=== PATIENT | female | born 1975 | race Caucasian/White ===

== ENCOUNTER 2016-08-27 07:41 | Inpatient (IN) | payer OTHER ==
[2016-08-25 14:57] VITALS: BMI 26.2
[2016-08-27] MEDS ORDERED: KETOROLAC TROMETHAMINE 30 MG/1 ML VIAL ONE (10:16)
[2016-08-27] MEDS ORDERED: MIDAZOLAM HCL 2 MG/2 ML SINGLE DOSE VIAL ONE (10:16)
[2016-08-27] MEDS ORDERED: ceFAZolin SODIUM 1 GM VIAL ONE ×2 (10:16→17:44)
[2016-08-27] MEDS ORDERED: ROCURONIUM BROMIDE 50 MG/5 ML VIAL ONE ×2 (10:16→11:47)
[2016-08-27] MEDS ORDERED: DEXAMETHASONE SOD PHOSPHATE 4 MG/1 ML VIAL ONE ×2 (10:16→16:04)
[2016-08-27] MEDS ORDERED: SODIUM CHLORIDE 0.9% P/F 10 ML VIAL IJ ONE (10:16)
[2016-08-27] MEDS ORDERED: ceFAZolin SODIUM 1 GM VIAL IVPB ONE ×2 (10:31→18:20)
[2016-08-27] MEDS ORDERED: METHYLENE BLUE 1% 10 MG/1 ML VIAL ONE (11:49)
[2016-08-27] MEDS ORDERED: METRONIDAZOLE 500 MG PREMIXED 100 ML IVPB ONE (12:59)
[2016-08-27] MEDS ORDERED: METRONIDAZOLE 500 MG PREMIXED 500 MG/100 ML MG IVPB ONE (13:02)
--- NOTE | 2016-08-27 14:47 | OP ---
Operative Note - Note: Operative Date: 08/27/16 Pre-Operative Diagnosis: Possible small bowel enterotomy Operation: Robotic lysis of adhesions, exploratory laparotomy, small bowel resection with primary anastomosis Findings: Small bowel enterotomy Post-Operative Diagnosis: Other (Small bowel enterotomy) Surgeon: Chinedu Ventura Patient Resource Coordinator: Celestina Walters Anesthesia: General Specimens Removed: Small bowel with anastomotic content Estimated Blood Loss (mls): 30 Operative Report Dictated: Yes
[2016-08-27] MEDS ORDERED: HYDROmorphone HCL CARPU-JECT 2 MG/1 ML DISP.SYRIN ONE (16:42)
[2016-08-27] MEDS: HYDROmorphone HCL CARPU-JECT 1 MG/1 ML DISP.SYRIN IVPUSH PRN ×4 (16:42→17:12)
[2016-08-27] MEDS ORDERED: LACTATED RINGERS SOLUTION 1,000 ML IV SCH (16:45)
[2016-08-27] MEDS ORDERED: ONDANSETRON 4 MG/2 ML VIAL IVPUSH PRN (16:45)
[2016-08-27] MEDS ORDERED: IBUPROFEN 800 MG/8 ML IJ IVPB PRN (16:48)
--- NOTE | 2016-08-27 16:48 | HP ---
History & Physical Update - History History: No Change - Physical Physical: No Change - Assessment Assessment: No Change - Plan Plan: No Change
[2016-08-27] MEDS: CEFAZOLIN 2 GM/D5W 50 ML IVPB SCH (20:03)
--- NOTE | 2016-08-27 21:34 | OP ---
Operative Note - Note: Operative Date: 08/27/16 Pre-Operative Diagnosis: Chronic Pelvic Pain. Leiomyomatous Uterus Operation: Robotic Laparoscopic Total hysterectomy. Bilateral salpingectomy. Enterolysis. Enterotomy. Bowel reanastomsis by Dr Ventura Findings: 8cm anterior myoma removed prior to doing hysterectomy enterotomy done after bowel found attached to anterior abdominal wall General surgeon called for intraoperative consult bowel resection & reanastomosis done bowel seal confirmed Post-Operative Diagnosis: Same as Pre-op Surgeon: Akilah Dowd Commercial Assistant: Celestina Walters Anesthesiologist/SASH STICKER: Reynaldo Claros Jr. Anesthesia: General Estimated Blood Loss (mls): 100 Operative Report Dictated: Yes
[2016-08-28] MEDS: CEFAZOLIN 2 GM/D5W 50 ML IVPB SCH (01:12)
[2016-08-28] MEDS: HYDROmorphone HCL CARPU-JECT 1 MG/1 ML DISP.SYRIN IVPB PRN ×5 (02:29→20:16)
--- NOTE | 2016-08-28 08:03 | PN ---
Progress Note, Physician Chief Complaint: Pt. pain controlled, no GA complaints. - Current Medication List Current Medications: Active Medications Enoxaparin Sodium (Lovenox -) 40 mg SQ DAILY LIZETTE Hydromorphone HCl (Dilaudid Injection -) 1 mg IVPB Q4H PRN PRN Reason: PAIN Last Admin: 08/28/16 02:29 Dose: 1 mg Hydromorphone HCl (Dilaudid -) 4 mg PO Q4H PRN PRN Reason: PAIN Dextrose/Lactated Ringer's (D5-Lr -) 1,000 mls @ 125 mls/hr IV ASDIR LIZETTE Ibuprofen (Caldolor Injection -) 800 mg IVPB Q6H PRN PRN Reason: FEVER Last Admin: 08/28/16 01:13 Dose: 800 mg - Objective Vital Signs: Vital Signs Temperature 98.0 F 08/28/16 05:46 Pulse Rate 74 08/28/16 05:46 Respiratory Rate 16 08/28/16 05:46 Blood Pressure 96/66 08/28/16 05:46 O2 Sat by Pulse Oximetry (%) 98 08/28/16 05:47 Constitutional: Yes: Well Nourished, No Distress, Calm Musculoskeletal: Yes: WNL Neurological: Yes: WNL, Alert, Oriented ...Motor Strength: WNL Assessment/Plan POD#1 s/p Robotic hysterectomy with bilateral salpingectomy, lysis of adhesions , and reanastamosis of small bowel. Under GA. Doing well. D/C from anesthesia care.
[2016-08-28 08:32] LABS: MCH 29.4 pg (25.7-33.7); MCHC 33.5 g/dl (32.0-36.0); MEAN CELL VOLUME 87.8 fl (80-96); MEAN PLT VOLUME 8.8 fl (7.5-11.1); PLATELET COUNT 213 K/MM3 (134-434); RDW 13.3 % (11.6-15.6); WHITE BLOOD COUNT 10.8 K/mm3 (4.0-10.0)
--- NOTE | 2016-08-28 09:05 | PN ---
[id number] Total hysterectomy. Bilateral salpingectomy. Enterolysis. Enterotomy. Bowel reanastomsis by Dr Ventura No acute events per RN notes. Resting in position of comfort. C/o incisional tenderness. Denies flatus, n/v/f/c, CP or SOB. AVSS. Afebrile. H/H 10.4/30.9 PE General: alert. nad Pulm: cta b/l anteriorly Cor: rrr Abd: Soft. All surgical ports intact. No hematoma. Bowel sounds absent. <Seth Garza - Last Filed: 08/28/16 09:06> - Note Progress Note: Agree POD 1 Robotic lysis of adhesions, exploratory laparotomy, small bowel resection with anastomosis Pain controlled No flatus No nausea/vomiting AVSS Abd soft, incisional tenderness CBC, BMP 08/28/16 06:30 08/28/16 08:20 OOB Incentive spirometer Sips of clears Would not advance diet until has flatus <Chinedu Ventura - Last Filed: 08/28/16 13:26> Problem List - Problems (1) S/P hysterectomy Assessment/Plan: POD #1 s/p Robotic Laparoscopic Total hysterectomy. Bilateral salpingectomy. Enterolysis. Enterotomy. Bowel reanastomsis by Dr Ventura Cont NPO & IVF Awaiting bowel function to resume before starting diet. Pain management PRN Aggressive mobilization Incentive spirometer GI ppx Cont care per primary team Code(s): Z90.710 - ACQUIRED ABSENCE OF BOTH CERVIX AND UTERUS <Seth Garza P - Last Filed: 08/28/16 09:06>
[2016-08-28 09:23] LABS: CALCIUM 7.7 mg/dL (8.5-10.1); CREATININE 0.5 mg/dL (0.55-1.02)
--- NOTE | 2016-08-28 09:53 | PN ---
Progress Note, Physician Chief Complaint: Pt seen/evaluated this a.m. With some pain at incision sites, otherwise feels well. No CP/SOB/F/C/BROWN. No flatus. Was given some clear liquid/water last night to sip on. NO vomiting overnight. Having some nausea. No VB. - Current Medication List Current Medications: Active Medications Enoxaparin Sodium (Lovenox -) 40 mg SQ DAILY LIZETTE Hydromorphone HCl (Dilaudid Injection -) 1 mg IVPB Q4H PRN PRN Reason: PAIN Last Admin: 08/28/16 08:03 Dose: 1 mg Hydromorphone HCl (Dilaudid -) 4 mg PO Q4H PRN PRN Reason: PAIN Dextrose/Lactated Ringer's (D5-Lr -) 1,000 mls @ 125 mls/hr IV ASDIR LIZETTE Ibuprofen (Caldolor Injection -) 800 mg IVPB Q6H PRN PRN Reason: FEVER Last Admin: 08/28/16 01:13 Dose: 800 mg - Objective Vital Signs: Vital Signs Temperature 98.9 F 08/28/16 09:19 Pulse Rate 83 08/28/16 09:19 Respiratory Rate 20 08/28/16 09:19 Blood Pressure 115/64 08/28/16 09:19 O2 Sat by Pulse Oximetry (%) 97 08/28/16 09:00 Constitutional: Yes: Well Nourished, No Distress, Calm Eyes: Yes: Conjunctiva Clear, EOM Intact HENT: Yes: Atraumatic, Normocephalic Neck: Yes: Supple, Thyromegaly Cardiovascular: Yes: Regular Rate and Rhythm Respiratory: Yes: Regular, CTA Bilaterally Gastrointestinal: Yes: Soft, Hypoactive Bowel Sounds (absent), Tenderness ( appropriate post surgical tenderness) Extremities: Yes: WNL, Other (b/l SCDs in place) Edema: No Wound/Incision: Yes: Clean/Dry, Dressing Dry and Intact Neurological: Yes: Alert, Oriented Psychiatric: Yes: Alert, Oriented Labs: CBC, BMP 08/28/16 06:30 08/28/16 08:20 Problem List - Problems (1) S/P hysterectomy Code(s): Z90.710 - ACQUIRED ABSENCE OF BOTH CERVIX AND UTERUS (2) Iatrogenic enterotomy Code(s): [id number] - Assessment/Plan 41 y/o POD #1 s/p Robotic Laparoscopic Total hysterectomy, Bilateral salpingectomy, Enterolysis, Enterotomy and Bowel reanastomsis by Dr Ventura - AFVSS - Mild leukocytosis, Hgb stable at 10.4 - enterolysis and repair of enterotomy by gen. surgery - NPO for now. On antibiotics X 24 hours. For bowel regimen/diet management per gen. surgery - appreciate input - Hgb stable post op - remove castro catheter later today, until then, strict I/Os . - ambulation later today, lovenox for VTE PPx
[2016-08-28] MEDS: ENOXAPARIN NA (PORCINE) 40 MG/0.4 ML DISP.SYRIN SQ SCH (09:59)
[2016-08-28] MEDS: DEXTROSE 5%-LACTATED RINGERS 1,000 ML IV SCH (13:37)
--- NOTE | 2016-08-28 17:49 | OP ---
DATE OF OPERATION: 08/27/2016 PREOPERATIVE DIAGNOSIS: Chronic pelvic pain and leiomyomatous uterus. OPERATION: Robotic total laparoscopic hysterectomy and bilateral salpingectomy. Also, enterolysis and enterotomy, and re-anastomosis done by Dr. Ventura. SURGEON: Felipa Salazar M.D. TICK INSPECTOR: Celestina Walters M.D. Intraoperative consult called by Dr. Ventura. FINDINGS: An 8-cm anterior myoma in the uterus, uterus approximately 11 cm in size. Also, findings were bowel attached to the anterior abdominal wall, possibly within the wall of the abdomen. Ovaries normal. Left ovary noted to have a cyst on it. Fallopian tubes were normal. ANESTHESIA: General. ANESTHESIOLOGIST: Reynaldo Claros CRNA, and Jaleel Santizo M.D. PROCEDURE: Patient was taken to the operating room, placed in dorsal lithotomy position, prepped and draped in usual sterile fashion. A timeout was performed in accordance with hospital regulation. De Souza catheter was placed into the bladder. Anterior lip of the cervix was grasped with a single tooth tenaculum after speculum had been placed. Cervix was then dilated to accommodate the V-Care device. V- Care uterine manipulator was entered into endometrial cavity and around the cervix. Attention was then drawn to the umbilicus where an 8-mm umbilical incision was then made. Veress needle was inserted into the cavity. Approximately 3 to 4 liters of CO2 was insufflated in the cavity. Another 8-mm trocar was placed on the lower left, and in the upper left a 5-mm cannula was placed under direct visualization. Two incisions were made on the right, 8 mm in size, and 8-mm trocars were inserted approximately 8 to 10 cm apart from each other. Laparoscopic camera revealed a severely adherent bowel opacity, anterior abdominal wall. The Endoshears and harmonic was attached. Was unable to see to perform hysterectomy due to the bowel attached to the anterior abdominal wall possibly after patient's abdominoplasty. The harmonic was used to remove the adhesions, omental adhesions and bowel adhesions, to the anterior abdominal wall. Procedure was to enter the abdominal wall and remove the bowel out of the anterior abdominal wall. Robot was side docked and trocars attached. An enterotomy was noted intraoperatively, and general surgery was then called. Dr. Ventura was called and found the enterotomy. Further enterolysis was done with robot, and decision was then made to repair the enterotomy with anastomosis through a small incision in the upper abdomen done by Dr. Ventura. Procedure was done by Dr. Ventura, assisted by Dr. Walters. After bowel had been repaired and seal noted, bowel was replaced back into the abdomen, and fascia was then closed. The attention was then drawn back to the robot after trocars had been reinserted onto the Da Brant robot which was side docked to the patient's side. The uterus was moved to the right side with tenaculum where round ligament was identified and clamped and cut. Uterine ovarian ligament was identified and clamped and cut using a vessel sealer. Vessel sealer tenaculum and Endoshears had been placed in the patient's abdomen. Vesicouterine reflection was then entered and bladder was bluntly dissected out of the operative field. V-Care uterine manipulator was identified. Uterine artery was identified, clamped and cut, and cardinal ligaments was identified and clamped and cut. Endoshears were then used to enter the vagina anteriorly with the uterine manipulator. Attention was then drawn to the right side. The same procedure was repeated on the right. The uteroovarian ligament was identified and clamped and cut. Round ligament was identified and clamped and cut, and uterine arteries were clamped and cut using vessel sealer, and cardinal ligament was identified and clamped and cut. Endoshears were then used to make the circumferential incision on the vagina to remove the cervix away from the vagina. The ureters were identified and found to have peristalsis bilaterally. Methylene blue had been given to the patient, and blue dye was seen coming out of De Souza and none intraoperatively. Fallopian tubes were grasped and cut using Ligasure and removed. The 8-cm myoma that had been removed in the anterior aspect of the uterus was removed also from the vagina. Uterus and cervix were removed from the vagina with the fallopian tubes. A 2-0 V-Loc suture was passed intraabdominally, and the robot was used to close the vagina continuous fashion, and oversewn in the midline. Ureters were found to have peristalsis Hemostasis was achieved, estimated blood loss was 100 mL. All instruments were then removed. Da Brant robot was removed from the patient's bedside. Incisions were then closed using 4-0 Biosyn in subcuticular fashion on all incisions. Steri-Strips were placed on the incision. Wound was washed and dressed. Patient tolerated procedure well. Estimated blood loss was again 100 mL. FELIPA SALAZAR M.D. [id number] MTDD
--- NOTE | 2016-08-28 18:24 | OP ---
DATE OF OPERATION: 08/27/2016 REASON FOR INTRAOPERATIVE CONSULTATION: Possible enterotomy during robotic hysterectomy. PREOPERATIVE DIAGNOSIS: Possible small bowel enterotomy. POSTOPERATIVE DIAGNOSIS: Small bowel enterotomy. PROCEDURES: Robotic lysis of adhesions, exploratory laparotomy and small bowel resection with primary anastomosis. SPECIMENS: Small bowel with anastomotic contents. ESTIMATED BLOOD LOSS: 30 mL. ANESTHESIA: GET. PROCEDURE IN DETAIL: This is a 41-year-old female who was undergoing a hysterectomy by Dr. Dowd and Dr. Walters when a question of a possible small bowel enterotomy was entertained. Intraoperative consult was obtained to further evaluate. I was called into the operating room to inspect for the possible small bowel enterotomy. At the robotic console, it was immediately noted that a loop of small bowel was densely adherent to the abdominal wall. This was the question of where the possible small bowel enterotomy was noted by Dr. Dowd upon trying to free the small bowel from the densely adhered abdominal wall. Robotic lysis of adhesions was performed carefully dissecting the loop of small bowel from the abdominal wall. Once fully done, the small bowel was inspected. A small bowel enterotomy was noted with approximately a 1.5-cm to 2-cm enterotomy defect. The small bowel was brought up to the abdominal wall and it was decided at that point to make a small transverse incision for an exploratory laparotomy to resect the bowel with the enterotomy. At the OR table, a transverse incision was made near the umbilicus and skin and subcutaneous dissection down to the level of the fascia. The fascia was divided. The small bowel was grasped and exteriorized. Again, the enterotomy was noted. Distal and proximal to the small bowel windows were created in the mesentery and the small bowel was transected using MARGIE staplers with blue load. A LigaSure device was used to ligate the blood supply to the specimen. Specimen was sent off the field. 3-0 silk sutures were used to reapproximate the two ends of the small bowel. Enterotomies were created in both ends and the anastomosis was created using an Endo MARGIE stapler with blue load. The common enterotomy was closed using a TA stapler. The staple line was inspected and noted to be fully intact. Hemostasis was achieved using 3-0 silk sutures. Further 3-0 silk were used to further imbricate the staple line, again the staple line was noted to be fully intact. The mesenteric defect was closed using a 2-0 Ethibond suture. The small bowel was again inspected and again the anastomosis noted to be intact and fully patent. This was then placed back within the abdominal cavity. While the fascia was being held closed by Dr. Walters further inspection via the robot was performed of the anastomosis. It was noted on reimplantation of the small bowel into the abdomen that the suture on the mesenteric defect had open, therefore further suture of 0 Tycron was placed to close the mesenteric defect. The anastomosis again was inspected and noted to be fully intact. At this point, Dr. Walters closed the fascia at the site and the rest of the hysterectomy was performed by Dr. Dowd and Dr. Walters. Please refer to their operative note for further details. KARYN IBARRA M.D. [id number] MTDD
[2016-08-29] MEDS: HYDROmorphone HCL CARPU-JECT 1 MG/1 ML DISP.SYRIN IVPB PRN ×2 (03:10→08:48)
--- NOTE | 2016-08-29 08:54 | PN ---
Progress Note, Physician Chief Complaint: she offers no complaints not passing any gas - Current Medication List Current Medications: Active Medications Enoxaparin Sodium (Lovenox -) 40 mg SQ DAILY [facility] Last Admin: 08/28/16 09:59 Dose: 40 mg Hydromorphone HCl (Dilaudid Injection -) 1 mg IVPB Q4H PRN PRN Reason: PAIN Last Admin: 08/29/16 03:10 Dose: 1 mg Hydromorphone HCl (Dilaudid -) 4 mg PO Q4H PRN PRN Reason: PAIN Dextrose/Lactated Ringer's (D5-Lr -) 1,000 mls @ 125 mls/hr IV ASDIR [facility] Last Admin: 08/28/16 13:37 Dose: 125 mls/hr Ibuprofen (Caldolor Injection -) 800 mg IVPB Q6H PRN PRN Reason: FEVER Last Admin: 08/28/16 01:13 Dose: 800 mg - Objective Vital Signs: Vital Signs Temperature 99.4 F 08/29/16 02:00 Pulse Rate 89 08/29/16 02:00 Respiratory Rate 20 08/29/16 02:00 Blood Pressure 105/66 08/29/16 02:00 O2 Sat by Pulse Oximetry (%) 97 08/28/16 09:00 Constitutional: Yes: Well Nourished, No Distress, Calm Eyes: Yes: WNL HENT: Yes: WNL Neck: Yes: WNL, Supple Cardiovascular: Yes: WNL Respiratory: Yes: WNL, Regular Gastrointestinal: Yes: Soft ...Rectal Exam: Yes: WNL Genitourinary: Yes: WNL Breast(s): Yes: WNL Musculoskeletal: Yes: WNL Extremities: Yes: WNL Edema: No Peripheral Pulses WNL: Yes Integumentary: Yes: WNL Wound/Incision: Yes: Clean/Dry Neurological: Yes: Alert, Oriented ...Motor Strength: WNL Psychiatric: Yes: WNL Labs: CBC, BMP 08/28/16 06:30 08/28/16 08:20 Assessment/Plan s/p diana bso with small bowel resection condtion is stable currently tolorating small amounth of clear fluid plan to increase fluid intake as tolorated continue current care and manage as per surgical request continue castro care
[2016-08-29] MEDS: ENOXAPARIN NA (PORCINE) 40 MG/0.4 ML DISP.SYRIN SQ SCH (09:36)
[2016-08-29] MEDS ORDERED: OXYCODONE/APAP 5/325MG COMBO TABLET PO PRN (10:24)
[2016-08-29] MEDS ORDERED: oxyCODONE HCL 5 MG TABLET PO PRN (10:40)
--- NOTE | 2016-08-29 11:40 | PN ---
Progress Note (short form) - Note Progress Note: POD#2 Pt wihtout any nausea or emsis, has small amount of liquids yesterday No flatus or BM. Oob and ambulating. Vital Signs Period Temp Pulse Resp BP Sys/Hadley Pulse Ox Last 24 Hr 97.7 F-99.4 F 68-89 20-20 102-112/61-66 PE: GEN: A&0x3, NAD Abd: soft, mild distention. Inc tenderness. Inc c/d/i, no evidence of hematoma/ erythema. LE; no calf swelling or tenderness noted. CBC, BMP 02/17/17 06:30 02/17/17 08:20 A/P: s/p robotic hysterectomy, repair of SB enterotomy with primary anastaomosis , POD#2 May begin clears as tolerated OOB and ambulate De Souza discontnued by [employer] cbc/chem for the am spoke with dr. Ventura
[2016-08-29] MEDS: DEXTROSE 5%-LACTATED RINGERS 1,000 ML IV SCH (13:00)
[2016-08-29] MEDS: oxyCODONE HCL 5 MG TABLET PO PRN ×2 (17:10→22:58)
[2016-08-29] MEDS: ACETAMINOPHEN 325 MG TABLET (FP) PO PRN ×2 (17:11→22:58)
[2016-08-30] MEDS: DEXTROSE 5%-LACTATED RINGERS 1,000 ML IV SCH (02:00)
[2016-08-30] MEDS: ACETAMINOPHEN 325 MG TABLET (FP) PO PRN ×3 (02:28→18:14)
[2016-08-30] MEDS: oxyCODONE HCL 5 MG TABLET PO PRN (06:24)
--- NOTE | 2016-08-30 07:34 | PN ---
Progress Note, Physician History of Present Illness: Pt seen/evaluated and doing well. Pain controlled. Tolerated clear liquid diet yesterday, no nausea/vomiting. Has slight appetite. Some belching, no passing flatus. Has been ambulating without difficulty - no dizziness/light headedness. No CP/SOB/F/C/BROWN or other complaints. - Current Medication List Current Medications: Active Medications Acetaminophen (Tylenol -) 650 mg PO Q4H PRN PRN Reason: PAIN Stop: 09/01/16 10:39 Last Admin: 08/30/16 06:25 Dose: 650 mg Enoxaparin Sodium (Lovenox -) 40 mg SQ DAILY [facility] Last Admin: 08/29/16 09:36 Dose: 40 mg Hydromorphone HCl (Dilaudid Injection -) 1 mg IVPB Q4H PRN PRN Reason: PAIN Last Admin: 08/29/16 08:48 Dose: 1 mg Hydromorphone HCl (Dilaudid -) 4 mg PO Q4H PRN PRN Reason: PAIN Dextrose/Lactated Ringer's (D5-Lr -) 1,000 mls @ 125 mls/hr IV ASDIR [facility] Last Admin: 08/30/16 02:00 Dose: 125 mls/hr Ibuprofen (Caldolor Injection -) 800 mg IVPB Q6H PRN PRN Reason: FEVER Last Admin: 08/28/16 01:13 Dose: 800 mg Oxycodone HCl (Roxicodone -) 5 mg PO Q4H PRN PRN Reason: PAIN Last Admin: 08/30/16 06:24 Dose: 5 mg - Objective Vital Signs: Vital Signs Temperature 98.7 F 08/29/16 22:00 Pulse Rate 77 08/29/16 22:00 Respiratory Rate 20 08/29/16 22:00 Blood Pressure 120/74 08/29/16 22:00 O2 Sat by Pulse Oximetry (%) 97 08/28/16 09:00 Constitutional: Yes: Well Nourished, No Distress Eyes: Yes: Conjunctiva Clear, EOM Intact HENT: Yes: Atraumatic, Normocephalic Neck: Yes: Supple, Trachea Midline Cardiovascular: Yes: Regular Rate and Rhythm Respiratory: Yes: Regular, CTA Bilaterally Gastrointestinal: Yes: Soft, Hypoactive Bowel Sounds, Tenderness (appropriate post surgical tenderness), Other (abdomen soft, non distended). No: Distention Genitourinary: No: Vaginal Bleeding, Vaginal Discharge Extremities: Yes: WNL Wound/Incision: Yes: Clean/Dry, Well Approximated, Steri Strips Neurological: Yes: Alert, Oriented Psychiatric: Yes: Alert, Oriented Labs: CBC, BMP 08/28/16 06:30 08/28/16 08:20 Problem List - Problems (1) S/P hysterectomy Code(s): Z90.710 - ACQUIRED ABSENCE OF BOTH CERVIX AND UTERUS (2) Iatrogenic enterotomy Code(s): HBV3601 - Assessment/Plan 41 y/o POD #3 s/p Robotic Laparoscopic Total hysterectomy, Bilateral salpingectomy, Enterolysis, Enterotomy with Bowel reanastomsis by Dr Ventura - [facility] WITH [facility] - Hgb stable at 10.4 post op, repeat labs today - enterolysis and repair of enterotomy by gen. surgery - Pt tolerating clear diet, no flatus yet. Will manage diet per gen. surgery recommendatoins - appreciate input - Continue IV fluids until tolerating diet - May shower today - Encourage ambulation - continue current care
[2016-08-30] MEDS ORDERED: oxyCODONE HCL 5 MG TABLET PO PRN (07:35)
[2016-08-30] MEDS ORDERED: IBUPROFEN 600 MG TABLET (FP) PO PRN (07:35)
--- NOTE | 2016-08-30 07:42 | PN ---
[id number] without any nausea or emesis. OOB and ambulating, voiding after castro cath removal. No flatus or BM yet. Vital Signs Period Temp Pulse Resp BP Sys/Hadley Pulse Ox Last 24 Hr 98.5 F-98.8 F 77-98 20-20 115-126/74-84 PE: GEN: Alert & oriented x3, NAD Cv: RRR Lungs: CTA b/l, anteriorly ABD: soft, less distended, inc tenderness. Inc c/d/i with steri-strips. LE: no calf tenderness or swelling noted b/l A/P: s/p robotic hysterectomy, repair of SB enterotomy with primary anastaomosis , POD#3 Tolerating clears, if she continue to tolerate clears consider fulls for dinner Cont oob/ambulate Cbc/chem ordered for today Oral pain managment DVT ppx with lovenox/Scds/ambulate <Gertrudis Askew - Last Filed: 08/30/16 07:42> - Note Progress Note: Agree Tolerating clears No flatus Await flatus before advancing diet OOB <Chinedu Ventura - Last Filed: 08/30/16 19:39>
[2016-08-30 08:11] LABS: BASOPHIL 0.6 % (0-2.0); MCH 29.5 pg (25.7-33.7); MCHC 33.6 g/dl (32.0-36.0); MEAN PLT VOLUME 8.2 fl (7.5-11.1); NEUTROPHILS 66.8 % (42.8-82.8); PLATELET COUNT 210 K/MM3 (134-434)
[2016-08-30 09:02] LABS: CALCIUM 7.8 mg/dL (8.5-10.1); CREATININE 0.5 mg/dL (0.55-1.02)
[2016-08-30] MEDS: ENOXAPARIN NA (PORCINE) 40 MG/0.4 ML DISP.SYRIN SQ SCH (10:27)
[2016-08-31] MEDS: ACETAMINOPHEN 325 MG TABLET (FP) PO PRN (01:14)
--- NOTE | 2016-08-31 09:06 | PN ---
Progress Note (short form) - Note Progress Note: Pt has passed flatus several times. No nausea or emesis with fulls. OOB and ambulating. Vital Signs Period Temp Pulse Resp BP Sys/Hadley Pulse Ox Last 24 Hr 98.0 F-99.4 F 82-97 20-20 117-127/71-81 PE: GEN: A&0x3 ABD: soft, non-distended, inc tenderness. inc c/d/i LE: no calf tenderness or swelling noted b/l CBC, BMP 08/30/16 07:30 08/30/16 07:30 A/P: s/p robotic hysterectomy, repair of SB enterotomy with primary anastomosis , POD#4 Tolerating fulls, D/w Dr. Ventura and may advance diet to soft for lunch if she continue to tolerate the full liquid diet <Gertrudis Askew - Last Filed: 08/31/16 09:07> - Note Progress Note: Agree Tolerating fulls + Flatus yesterday No nausea/vomiting AVSS Abd soft, minimal distention, incisional tenderness WBC 7 Soft diet If tolerates can discharge home from surgical standpoint later today <Chinedu Ventura - Last Filed: 08/31/16 12:58>
[2016-08-31] MEDS: ENOXAPARIN NA (PORCINE) 40 MG/0.4 ML DISP.SYRIN SQ SCH (10:17)
--- NOTE | 2016-08-31 11:55 | PN ---
Progress Note, Physician History of Present Illness: Pt seen/examined and doing well. Pain controlled, tolerating full liquid diet. No nausea/vomiting. Ambulating, voiding. Some flatus last night. - Current Medication List Current Medications: Active Medications Acetaminophen (Tylenol -) 650 mg PO Q4H PRN PRN Reason: PAIN Stop: 09/01/16 10:39 Last Admin: 08/31/16 01:14 Dose: 650 mg Enoxaparin Sodium (Lovenox -) 40 mg SQ DAILY [facility] Last Admin: 08/31/16 10:17 Dose: 40 mg Dextrose/Lactated Ringer's (D5-Lr -) 1,000 mls @ 125 mls/hr IV ASDIR [facility] Last Admin: 08/30/16 02:00 Dose: 125 mls/hr Ibuprofen (Caldolor Injection -) 800 mg IVPB Q6H PRN PRN Reason: FEVER Last Admin: 08/28/16 01:13 Dose: 800 mg Ibuprofen (Motrin -) 600 mg PO Q6H PRN PRN Reason: FEVER Oxycodone HCl (Roxicodone -) 5 mg PO Q4H PRN PRN Reason: PAIN Last Admin: 08/30/16 06:24 Dose: 5 mg Oxycodone HCl (Roxicodone -) 10 mg PO Q4H PRN PRN Reason: PAIN LEVEL 6-10 - Objective Vital Signs: Vital Signs Temperature 98.7 F 08/31/16 10:00 Pulse Rate 83 08/31/16 10:00 Respiratory Rate 20 08/31/16 10:00 Blood Pressure 115/73 08/31/16 10:00 O2 Sat by Pulse Oximetry (%) 97 08/28/16 09:00 Constitutional: Yes: Well Nourished, No Distress, Calm Eyes: Yes: Conjunctiva Clear, EOM Intact HENT: Yes: Atraumatic, Normocephalic Neck: Yes: Supple, Trachea Midline Cardiovascular: Yes: Regular Rate and Rhythm Respiratory: Yes: Regular, CTA Bilaterally Gastrointestinal: Yes: Soft, Hypoactive Bowel Sounds, Tenderness (appropriate post surgical tenderness). No: Vomiting Genitourinary: Yes: WNL Extremities: Yes: WNL Wound/Incision: Yes: Clean/Dry, Well Approximated, Sutures Intact. No: Draining , Reddened, Bleeding Neurological: Yes: Alert, Oriented ...Motor Strength: WNL Psychiatric: Yes: Alert, Oriented Labs: CBC, BMP 08/30/16 07:30 08/30/16 07:30 Problem List - Problems (1) S/P hysterectomy Code(s): Z90.710 - ACQUIRED ABSENCE OF BOTH CERVIX AND UTERUS (2) Iatrogenic enterotomy Code(s): RHO3028 - Assessment/Plan 41 y/o POD #4 s/p Robotic Laparoscopic Total hysterectomy, Bilateral salpingectomy, Enterolysis, Enterotomy with Bowel re-anastomsis by Dr Ventura - AFVSS - Hgb stable at 9.5 post op - pt stable - enterolysis and repair of enterotomy by gen. surgery - Pt tolerating full liquid diet, no flatus yet. Will continue to manage diet per gen. surgery recommendatoins - appreciate input - May shower - Encourage ambulation - continue current care
--- NOTE | 2016-08-31 14:47 | PATH ---
Surgical Pathology Report Patient Name: CUONG MCGEE [facility]. Rec. 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 Specimen(s) Received A: UTERUS AND CERVIX B: SMALL BOWEL ANASTOMOSIS C: FIBROID D: RIGHT FALLOPIAN TUBE E: LEFT FALLOPIAN TUBE Clinical History Pelvic pain, leiomyomatous uterus Final Diagnosis A. UTERUS AND CERVIX, ROBOTIC LAPAROSCOPIC HYSTERECTOMY: CERVIX: CHRONIC CERVICITIS, NABOTHIAN CYSTS. ENDOMETRIUM: SECRETORY. MYOMETRIUM: ADENOMYOSIS. UTERINE SEROSA: FOCAL DEFECT WITH HEMORRHAGE. B. SMALL BOWEL ANASTOMOSIS: SEGMENT OF FOCALLY DISRUPTED SMALL BOWEL WITH FOCAL TRANSMURAL HEMORRHAGE AND NECROSIS AND MARKED MUSCLE CONGESTION; REACTIVE HYPERPLASIA OF MUCOSA ASSOCIATED LYMPHOID TISSUE. BOWEL RESECTION MARGINS APPEAR VIABLE WITH FOCAL SEROSAL HEMORRHAGE. C. FIBROID, MYOMECTOMY: LEIOMYOMA WITH DEGENERATIVE CHANGES AND FOCAL CHANGES SUGGESTIVE OF PRIOR EMBOLIZATION. D. FALLOPIAN TUBE, RIGHT, SALPINGECTOMY: BENIGN FALLOPIAN TUBE WITH FOCAL FIBRINOHEMORRHAGIC ADHESIONS. E. FALLOPIAN TUBE, LEFT SALPINGECTOMY: BENIGN FALLOPIAN TUBE WITH FOCAL FIBRINOHEMORRHAGIC ADHESIONS. Electronically Signed Eladio Evans M.D. Gross Description A. Received in formalin, labeled "uterus and cervix" is a 106 g uterus with an attached cervix and no attached adnexa. The specimen measures 8.3 cm from superior to inferior, 6.7 cm from left to right and 4.5 cm from anterior to posterior. The serosa is browne-mejias with adhesions and a focal large defect. The attached cervix measures 3 cm in length and 3.3 cm in diameter. The ectocervix is browne, smooth and glistening. The endocervix is hyperemic. The endometrial cavity measures 4 cm in length and 1.3 cm from cornu to cornu. The endometrium is hyperemic and averages 0.1 cm in thickness. The myometrium is browne-pink and averages 2.1 cm in length. There are no intramural nodules identified. There is focal hemorrhage surrounding the defect. Animal Sticker sections are submitted in 6 cassettes as follows: 1-2-cervix; 4-0-wutnalwonlgsny. B. Received in formalin, labeled "small bowel anastomosis" is an 8 cm in length portion of small bowel with 2 stapled mucosal margins and moderate attached fat. The serosa is browne-brown and dusky with a large focal defect. The mucosa is focally hemorrhagic in the area of the defect. The remaining mucosa is browne with normal folds. No mucosal masses are identified. Separately received within the same container is a 2.5 x 2.3 x 0.9 cm portion of small bowel containing yamila, possibly consistent with a donut. No masses are identified. Animal Sticker sections are submitted in 6 cassettes as follows: 2-0-waahvlopfyiz stapled mucosal margins; 6-5-xviikgir from area of defect; 5-uninvolved patient account representative mucosa; 6-sections from separately received portion of small bowel. C. Received in formalin, labeled "fibroid" is a 75 g, 5.6 x 5.0 x 4.5 cm browne, firm nodule, consistent with a fibroid. The cut surface reveals browne-smith, firm, degenerative parenchyma with whorled architecture. Animal Sticker sections are submitted in 3 cassettes. D. Received in formalin, labeled "right fallopian tube" is a 1.0 cm in length fimbriated portion of fallopian tube. The outer surface is browne-brown and smooth. Sectioning reveals a pinpoint lumen. The specimen is entirely submitted in 2 cassettes as follows: 1-fimbria; 2-cross sections of fallopian tube. E. Received in formalin, labeled "left fallopian tube" is a 0.6 cm in length fimbriated portion of fallopian tube. The outer surface is browne-brown and smooth. Sectioning reveals a pinpoint lumen. The specimen is entirely submitted in 2 cassettes as follows: 1-fimbria; 1-vinob-kvibjcdt of fallopian tube. 08/28/201608/28/2016
[2016-08-31] MEDS: DEXTROSE 5%-LACTATED RINGERS 1,000 ML IV SCH (19:03)
--- NOTE | 2016-09-01 07:26 | DS ---
Physical Examination Vital Signs: Vital Signs Temperature 98.8 F 08/31/16 21:48 Pulse Rate 92 H 08/31/16 21:48 Respiratory Rate 18 08/31/16 21:48 Blood Pressure 131/74 08/31/16 21:48 O2 Sat by Pulse Oximetry (%) 97 08/28/16 09:00 Findings/Remarks: Pt seen/examined. Feels well. Able to tolerate soft diet yesterday for lunch and dinner. +flatus. NO BM yet. No emesis. Pain controlled. No CP/SOB/F/C/ BROWN. Constitutional: Yes: Well Nourished, No Distress, Calm Eyes: Yes: Conjunctiva Clear, EOM Intact HENT: Yes: Atraumatic, Normocephalic Neck: Yes: Supple, Trachea Midline Cardiovascular: Yes: Regular Rate and Rhythm Respiratory: Yes: Regular, CTA Bilaterally Gastrointestinal: Yes: Normal Bowel Sounds, Soft. No: Tenderness, Vomiting Musculoskeletal: Yes: WNL Extremities: Yes: WNL Wound/Incision: Yes: Clean/Dry, Well Approximated Neurological: Yes: Alert, Oriented Psychiatric: Yes: Alert, Oriented Labs: CBC, BMP 08/30/16 07:30 08/30/16 07:30 Discharge Summary Reason For Visit: PELVIC PAIN/LEIOMYOMATOUS UTERUS Current Active Problems Iatrogenic enterotomy (Acute) S/P hysterectomy (Acute) Procedures: Principal: Robotic assisted laparoscopic hysterectomy Other Procedures: repair of enterotomy, partial small bowel resection Hospital Course: Patient admitted on 08/27 for scheduled hysterectomy. During procedure, patient underwent iatrogenic enterotomy and subsequent partial small bowel resection and repair. Patient recovered well post op. On post op day 1, patient was kept NPO . Pt was able to void spontaneously on post op day 1. On post op day 2 patient was advanced to clear diet and had no emesis. On post op day 3 patient was able to tolerate full liquid diet and passed flatus. On post op day 4, patient was tolerating a soft diet, with no nausea/emesis. Was voiding, passing flatus and ambulating. General surgery followed with patient throughout entire course. Patient was then discharged home in stable condition on pots op day 5. Condition: Good - Instructions Diet, Activity, Other Instructions: Dr. Akilah Dowd Youth Counselor discharge instructions Physical activity Resume your normal everyday activity as tolerated no heavy lifting or exercise until seen by your surgeon. You may walk unlimited kassi of and climb stairs. You may resume driving the car when you feel safe and comfortable behind the wheel. No sexual activity as instructed by Dr. Dowd. Wound care If you have a bandage, leave it on, and keep dry for 48-72 hours. After that time discard the outer bandage. If they are tapes on the skin under the out of bandage leave them in place. They will peel off in the next 7 to 10 days. Do Not Peel them off. You may shower the day after surgery. If there are tapes present on the skin, you may shower over them. Diet There are no dietary restrictions. Eat healthy, high-fiber foods. Drink 6 to 8 glasses of liquid each day. This will assist in keeping your bowels are regular. Pain management You may take Tylenol or acetaminophen or Ibuprofen (for example, Motrin, Advil etc.) from my pain prescription medication is ordered should be taken as prescribed for moderate to severe pain. Call Dr. Dowd for any of the following: Severe pain not relieved by medication Fever of 101 or higher Excessive bleeding or drainage on dressing Inability to urinate Call the office at [phone] for an appointment in seven days. Referrals: Akilah Dowd MD [Staff Physician] - 2 Weeks (1-2 weeks) Chinedu Ventura MD [Staff Physician] - 2 Weeks Disposition: HOME - Home Medications Comprehensive Discharge Medication List: Ambulatory Orders NK [No Known Home Medication] 08/25/16
[2016-09-01] MEDS: ENOXAPARIN NA (PORCINE) 40 MG/0.4 ML DISP.SYRIN SQ SCH (09:06)
[2016-09-01 09:51] VITALS: BP 122/64; PULSE 81; TEMP 98.5
== END 2016-09-01 10:35 | disposition home or self-care (01) | DRG 743 ==
LOC: JASUSAT 07:41 → J3W 18:30 → JASUSAT 18:31
PROVIDERS: ADMIT Obstetrics & Gynecology; ATTEND Obstetrics & Gynecology
PROC: 0JN83ZZ Release Abdomen Subcutaneous Tissue and Fascia, Percutaneous Approach (ICD-10-PCS; 2016-08-27)
PROC: 0WJP0ZZ Inspection of Gastrointestinal Tract, Open Approach (ICD-10-PCS; 2016-08-27)
PROC: 0DQ80ZZ Repair Small Intestine, Open Approach (ICD-10-PCS; 2016-08-27)
PROC: 0DB80ZX Excision of Small Intestine, Open Approach, Diagnostic (ICD-10-PCS; 2016-08-27)
PROC: 8E0W4CZ Robotic Assisted Procedure of Trunk Region, Percutaneous Endoscopic Approach (ICD-10-PCS; 2016-08-27)
PROC: 0UT94ZZ Resection of Uterus, Percutaneous Endoscopic Approach (ICD-10-PCS; principal; 2016-08-27 10:00)
PROC: 0UTC4ZZ Resection of Cervix, Percutaneous Endoscopic Approach (ICD-10-PCS; 2016-08-27 10:00)
PROC: 0UT74ZZ Resection of Bilateral Fallopian Tubes, Percutaneous Endoscopic Approach (ICD-10-PCS; 2016-08-27 10:00)
DX: D25.9 Leiomyoma of uterus, unspecified (principal); N83.292 Other ovarian cyst, left side; Z53.31 Laparoscopic surgical procedure converted to open procedure
CPT/HCPCS: 36415; 80048; 80053; 84702; 85025; 85027; 86850; 86900; 86901; 88305-TC; 88307-TC; 94010; 94760

== ENCOUNTER 2016-11-05 14:37 | Emergency (ER) | payer OTHER ==
[2016-11-05 14:50] VITALS: BMI 25.7
[2016-11-05] MEDS ORDERED: KETOROLAC TROMETHAMINE 30 MG/1 ML VIAL IVPUSH ONE (16:28)
--- NOTE | 2016-11-05 16:30 | PDOC ---
History of Present Illness - General Chief Complaint: Pain Stated Complaint: ABD PAIN Time Seen by Provider: 11/05/16 15:57 History Source: Patient - History of Present Illness Timing/Duration: reports: other (last night) Quality: reports: severe Abdominal Pain Onset Location: reports: suprapubic Past History - Past Medical History Allergies/Adverse Reactions: Allergies Allergy/AdvReac Type Severity Reaction Status Date / Time No Known Drug Allergies Allergy Verified 11/05/16 14:46 Home Medications: Ambulatory Orders Ciprofloxacin HCl [Cipro] 500 mg PO BID 11/05/16 Levofloxacin [Levaquin] 750 mg PO DAILY #10 tab 11/05/16 Metronidazole [Flagyl -] 500 mg PO TID #30 tablet 11/05/16 Anemia: No Asthma: Yes (as a child) Cancer: No Cardiac Disorders: No CVA: No COPD: No CHF: No Dementia: No Diabetes: No GI Disorders: No Disorders: No HTN: No Hypercholesterolemia: No Liver Disease: No Seizures: No Thyroid Disease: No - Surgical History Abdominal Surgery: Yes (TUMMY TUCK) Appendectomy: No Cardiac Surgery: No Cholecystectomy: No Lung Surgery: No Neurologic Surgery: Yes (LAMINECTOMY) Orthopedic Surgery: No - Reproductive History Is Patient Now?: No - Immunization History Immunization Up to Date: Yes - Psycho/Social/Smoking Cessation Hx Anxiety: No Suicidal Ideation: No Smoking History: Former smoker Have you smoked in the past 12 months: No If you are a former smoker, when did you quit?: 20YRS AGO Information on smoking cessation initiated: No Hx Alcohol Use: No Drug/Substance Use Hx: No Substance Use Type: Alcohol Hx Substance Use Treatment: No Review of Systems - Review of Systems Constitutional: No: Chills, Fever ABD/GI: Yes: Nausea. No: Constipated, Diarrhea, Vomiting : No: Dysuria, Flank Pain, Hematuria *Physical Exam - Vital Signs Last Vital Signs Temp Pulse Resp BP Pulse Ox 98 F 71 18 133/96 100 11/05/16 14:47 11/05/16 14:47 11/05/16 14:47 11/05/16 14:47 11/05/16 14:47 - Physical Exam General Appearance: Yes: Appropriately Dressed, Mild Distress HEENT: positive: Normal Voice Neck: positive: Supple Respiratory/Chest: negative: Respiratory Distress Female Pelvic Exam: positive: normal adnexa, discharge (minimal thin, white vag discharge). negative: adnexal tenderness, vaginal bleeding Gastrointestinal/Abdominal: positive: Soft, Other (sig ttp to mid and L suprapubic area w/ ?guarding, well oscar incisions, NT over mcburneys) Musculoskeletal: negative: CVA Tenderness Extremity: positive: Normal Inspection Integumentary: positive: Dry, Warm Neurologic: positive: Fully Oriented, Alert, Normal Mood/Affect ED Treatment Course - LABORATORY CBC & Chemistry Diagram: 11/05/16 17:06 11/05/16 18:25 - RADIOLOGY Radiology Studies Ordered: Category Date Time Status PELVIS(OTHER) US [US] Stat Ultrasound 11/05/16 16:29 Ordered TRANSVAGINAL ULTRASOUND US [US] Stat Ultrasound 11/05/16 16:28 Ordered Medical Decision Making - Medical Decision Making 11/05/16 16:29 41 yo F, history of fibroids, diverticulitis, status post hysterectomy August of this year complicated by iatrogenic enterotomy and subsequent partial small bowel resection and repair, currently on Cipro for UTI that was found incidentally on UA per patient, here with severe pelvic pressure radiating into her vagina since last night with nausea. Denies dysuria, change in bowel movements, ab/nl discharge, fever or chills. No history of similar pain. See exam Pelvic pain s/p hysterectomy and small bowel repair for iatrogenic bowel perf ~2 months ago at [facility] No change in BM +Sig ttp to mid and L suprapubic, NT over mcburneys Pelvic exam unremarkable Unclear source of pain at this time, already on cipro for uti (sen on ucx per pt ), w/ no c/o dysuria and no flank pain to suggest pyelo, doubt STD/pyelo given no vag discharge and no adnexal ttp vs torsion vs GI pathology, i.e SBO given prior surgery or recurrent diverticulitis -pain control -labs -US -?CT 11/05/16 16:38 11/05/16 18:39 Simple cysts in the right ovary w/ no e/o torsion. Pt better w/ meds but continues to have sig lower abd pain. Will scan at this time 11/05/16 18:48 11/05/16 18:51 11/12/16 20:29 *DC/Admit/Observation/Transfer Diagnosis at time of Disposition: Diverticulitis large intestine w/o perforation or abscess w/o bleeding - Discharge Dispostion Disposition: HOME - Prescriptions Prescriptions: Metronidazole [Flagyl -] 500 mg PO TID #30 tablet Levofloxacin [Levaquin] 750 mg PO DAILY #10 tab - Referrals Referrals: Leia Randolph [Primary Care Provider] - - Patient Instructions Printed Discharge Instructions: DI for Diverticulitis Additional Instructions: clear liquid diet until abdominal pain resolves. take tylenol for pain continue antibiotics as prescribed. return to the ER if with worsening abdominal pain, vomiting, or fever. follow up with your doctor as soon as possible - Post Discharge Activity Work/School Note: Back to Work
[2016-11-05] MEDS ORDERED: KETOROLAC TROMETHAMINE 30 MG/1 ML VIAL ONE (16:48)
[2016-11-05 17:24] LABS: URINE APPEARANCE CLEAR; URINE BILIRUBIN NEGATIVE (NEGATIVE); URINE COLOR STRAW; URINE GLUCOSE (UA) NEGATIVE (NEGATIVE); URINE KETONE NEGATIVE (NEGATIVE); URINE NITRITE NEGATIVE (NEGATIVE); URINE PROTEIN NEGATIVE (NEGATIVE); URINE UROBILINOGEN NEGATIVE E.U./dl (0.2-1.0)
[2016-11-05 17:27] LABS: BASOPHIL 0.7 % (0-2.0); EOSINOPHIL 0.9 % (0-4.5); MCH 28.1 pg (25.7-33.7); MCHC 32.3 g/dl (32.0-36.0); MEAN CELL VOLUME 86.9 fl (80-96); MEAN PLT VOLUME 8.9 fl (7.5-11.1); NEUTROPHILS 72.6 % (42.8-82.8); PLATELET COUNT 339 K/MM3 (134-434); RDW 14.2 % (11.6-15.6); WHITE BLOOD COUNT 12.2 K/mm3 (4.0-10.0)
[2016-11-05 18:14] LABS: URINE BLOOD 1+ (NEGATIVE); URINE LEUK ESTERASE TRACE (NEGATIVE)
[2016-11-05 18:17] LABS: URINE MUCUS RARE; URINE RBC 4 /hpf (0-3); URINE WBC <1 /hpf (3-5)
--- NOTE | 2016-11-05 18:19 | PDOC ---
*Physical Exam - Vital Signs Last Vital Signs Temp Pulse Resp BP Pulse Ox 98 F 71 18 133/96 100 11/05/16 14:47 11/05/16 14:47 11/05/16 14:47 11/05/16 14:47 11/05/16 14:47 - Physical Exam Comments: 11/05/16 18:18 The patient was examined by [Markus Zhu] under my direct supervision. I personally evaluated the patient. I concur with the above findings and the plan of care. ED Treatment Course - LABORATORY CBC & Chemistry Diagram: 11/05/16 17:06 11/05/16 18:25 - ADDITIONAL ORDERS Additional order review: Laboratory Results 11/05/16 11/05/16 17:06 16:35 Sodium Cancelled Potassium Cancelled Chloride Cancelled Carbon Dioxide Cancelled Anion Gap Cancelled BUN Cancelled Creatinine Cancelled Creat Clearance w eGFR Cancelled Random Glucose Cancelled Calcium Cancelled Total Bilirubin Cancelled AST Cancelled ALT Cancelled Alkaline Phosphatase Cancelled Total Protein Cancelled Albumin Cancelled Urine Color Straw Urine Appearance Clear Urine pH 6.0 Ur Specific [place] 1.016 Urine Protein Negative Urine Glucose (UA) Negative Urine Ketones Negative Urine Blood 1+ H Urine Nitrite Negative Urine Bilirubin Negative Urine Urobilinogen Negative Ur Leukocyte Esterase Trace H 11/05/16 17:06 RBC 4.64 D MCV 86.9 MCHC 32.3 RDW 14.2 MPV 8.9 Neutrophils % 72.6 Lymphocytes % 21.0 Monocytes % 4.8 Eosinophils % 0.9 Basophils % 0.7 - Medications Given in the ED: ED Medications Discontinued Medications Generic Name Dose Route Start Last Admin Trade Name Catrina PRN Reason Stop Dose Admin Ketorolac Tromethamine 30 mg 11/05/16 16:28 11/05/16 16:52 Toradol Injection - IVPUSH 11/05/16 16:29 30 mg ONCE ONE Administration *DC/Admit/Observation/Transfer Diagnosis at time of Disposition: Diverticulitis large intestine w/o perforation or abscess w/o bleeding - Discharge Dispostion Disposition: HOME - Prescriptions Prescriptions: Metronidazole [Flagyl -] 500 mg PO TID #30 tablet Levofloxacin [Levaquin] 750 mg PO DAILY #10 tab - Referrals Referrals: Leia Randolph [Primary Care Provider] - - Patient Instructions Printed Discharge Instructions: DI for Diverticulitis Additional Instructions: clear liquid diet until abdominal pain resolves. take tylenol for pain continue antibiotics as prescribed. return to the ER if with worsening abdominal pain, vomiting, or fever. follow up with your doctor as soon as possible - Post Discharge Activity Work/School Note: Back to Work
[2016-11-05] MEDS ORDERED: morphine CARPU-JECT 4 MG/1 ML DISP.SYRIN IVPUSH ONE (18:52)
[2016-11-05] MEDS ORDERED: morphine CARPU-JECT 2 MG/1 ML DISP.SYRIN ONE (19:04)
[2016-11-05 19:13] LABS: ALBUMIN 3.8 g/dl (3.4-5.0); ANION GAP 12 (8-16); CALCIUM 9.3 mg/dL (8.5-10.1); CO2 24 mmol/L (21-32); GLUCOSE,RANDOM 75 mg/dL (74-106)
[2016-11-05 19:17] LABS: ALK PHOS 72 U/L (45-117); BILIRUBIN,TOTAL 0.3 mg/dL (0.2-1.0); COCKROFT - GAULT 182.6225; CREATININE 0.5 mg/dL (0.55-1.02); SGOT/AST 17 U/L (15-37); SGPT/ALT 22 U/L (12-78); TOT PROT 7.1 g/dl (6.4-8.2)
[2016-11-05] MEDS ORDERED: METRONIDAZOLE 500 MG PREMIXED 100 ML IVPB ONE ×2 (22:02→22:26)
[2016-11-05] MEDS ORDERED: LEVOFLOXACIN 750 MG IVPB 150 ML IVPB ONE ×2 (22:02→23:16)
--- NOTE | 2016-11-05 22:02 | PDOC ---
*Physical Exam - Vital Signs Last Vital Signs Temp Pulse Resp BP Pulse Ox 98 F 84 18 134/71 99 11/05/16 14:47 11/05/16 19:01 11/05/16 19:01 11/05/16 19:01 11/05/16 19:01 - Physical Exam General Appearance: Yes: Appropriately Dressed Respiratory/Chest: positive: Lungs Clear, Normal Breath Sounds Gastrointestinal/Abdominal: positive: Normal Bowel Sounds, Tender (LLQ) ED Treatment Course - LABORATORY CBC & Chemistry Diagram: 11/05/16 17:06 11/05/16 18:25 - ADDITIONAL ORDERS Additional order review: Laboratory Results 11/05/16 11/05/16 11/05/16 18:25 17:06 16:35 Sodium 137 Cancelled Potassium 4.0 Cancelled Chloride 101 Cancelled Carbon Dioxide 24 Cancelled Anion Gap 12 Cancelled BUN 15 D Cancelled Creatinine 0.5 L Cancelled Creat Clearance w eGFR > 60 Cancelled Random Glucose 75 D Cancelled Calcium 9.3 Cancelled Total Bilirubin 0.3 D Cancelled AST 17 D Cancelled ALT 22 Cancelled Alkaline Phosphatase 72 Cancelled Total Protein 7.1 Cancelled Albumin 3.8 Cancelled Urine Color Straw Urine Appearance Clear Urine pH 6.0 Ur Specific [place] 1.016 Urine Protein Negative Urine Glucose (UA) Negative Urine Ketones Negative Urine Blood 1+ H Urine Nitrite Negative Urine Bilirubin Negative Urine Urobilinogen Negative Ur Leukocyte Esterase Trace H Urine RBC 4 Urine WBC <1 Ur Epithelial Cells Rare Urine Mucus Rare 11/05/16 17:06 RBC 4.64 D MCV 86.9 MCHC 32.3 RDW 14.2 MPV 8.9 Neutrophils % 72.6 Lymphocytes % 21.0 Monocytes % 4.8 Eosinophils % 0.9 Basophils % 0.7 - Medications Given in the ED: ED Medications Discontinued Medications Generic Name Dose Route Start Last Admin Trade Name Freq PRN Reason Stop Dose Admin Ketorolac Tromethamine 30 mg 11/05/16 16:28 11/05/16 16:52 Toradol Injection - IVPUSH 11/05/16 16:29 30 mg ONCE ONE Administration Morphine Sulfate 2 mg 11/05/16 18:52 11/05/16 19:07 Morphine Injection - IVPUSH 11/05/16 18:53 2 mg ONCE ONE Administration Medical Decision Making - Medical Decision Making diverticulitis P: levaquin flagyl, clear liquid. will d/c home. strict return precautions reviewed with patient. verbalized understanding. *DC/Admit/Observation/Transfer Diagnosis at time of Disposition: Diverticulitis large intestine w/o perforation or abscess w/o bleeding - Discharge Dispostion Disposition: HOME - Prescriptions Prescriptions: Metronidazole [Flagyl -] 500 mg PO TID #30 tablet Levofloxacin [Levaquin] 750 mg PO DAILY #10 tab - Referrals Referrals: Leia Randolph [Primary Care Provider] - - Patient Instructions Printed Discharge Instructions: DI for Diverticulitis Additional Instructions: clear liquid diet until abdominal pain resolves. take tylenol for pain continue antibiotics as prescribed. return to the ER if with worsening abdominal pain, vomiting, or fever. follow up with your doctor as soon as possible - Post Discharge Activity Work/School Note: Back to Work
[2016-11-05 23:22] VITALS: BP 120/79; PULSE 71; TEMP 97.3
== END 2016-11-06 01:24 | disposition home or self-care (01) ==
LOC: JER 14:37
PROC: 3E03329 Introduction of Other Anti-infective into Peripheral Vein, Percutaneous Approach (ICD-10-PCS; principal; 2016-11-05)
PROC: 3E03329 Introduction of Other Anti-infective into Peripheral Vein, Percutaneous Approach (ICD-10-PCS; 2016-11-05)
PROC: 3E033NZ Introduction of Analgesics, Hypnotics, Sedatives into Peripheral Vein, Percutaneous Approach (ICD-10-PCS; 2016-11-05)
PROC: 3E0333Z Introduction of Anti-inflammatory into Peripheral Vein, Percutaneous Approach (ICD-10-PCS; 2016-11-05)
DX: K57.20 Diverticulitis of large intestine with perforation and abscess without bleeding (principal); N83.292 Other ovarian cyst, left side; N83.291 Other ovarian cyst, right side
CPT/HCPCS: 36415; 74177-TC; 76830-TC; 76856-TC; 80053; 81003; 81015; 85025; 87086; 99283-25

== ENCOUNTER 2018-05-19 12:22 | Emergency (ER) | payer OTHER ==
[2018-05-19 12:26] VITALS: TEMP 98.7; BMI 25.8
[2018-05-19] MEDS ORDERED: ONDANSETRON 4 MG/2 ML VIAL IVPUSH ONE (12:41)
[2018-05-19] MEDS ORDERED: ACETAMINOPHEN 1000 MG/100 ML VIAL (NON FORMULARY) IVPB ONE (12:41)
[2018-05-19] MEDS ORDERED: SODIUM CHLORIDE 0.9% 1000 ML INFUS.BAG IV ONE (12:41)
--- NOTE | 2018-05-19 12:41 | PDOC ---
History of Present Illness - General History Source: Patient Exam Limitations: No Limitations - History of Present Illness Initial Comments: 05/19/18 13:51 The patient is a 43-year-old female, with a past medical history of asthma and diverticulitis, who presents to the ED with 1 day of LLQ pain. The patient describes the pain as constant, 10/10 in severity, nonradiating, with associated nausea, but no vomiting. The pain she is experiencing now is similar to her previous flare ups with diverticulitis. The patient denies any fever, chills, vomiting, or diarrhea. Denies any chest pain or shortness of breath. Denies any vaginal bleeding or vaginal discharge. Allergies: NKDA Past Social History: None reported. Past Surgical History: abdominoplasty, laminectomy, hysterectomy (patient still has her ovaries). PCP: Dr. Demetrio Kramer <Shakira Blue - Last Filed: 05/19/18 13:51> <Demetrio Ryan - Last Filed: 05/20/18 13:07> - General Chief Complaint: Pain Stated Complaint: ABD PAIN NAUSEA Time Seen by Provider: 05/19/18 12:33 Past History <Shakira Blue - Last Filed: 05/19/18 13:51> - Past Medical History Anemia: No Asthma: Yes (as a child) Cancer: No Cardiac Disorders: No CVA: No COPD: No CHF: No DVT: No Dementia: No Diabetes: No GI Disorders: Yes (DIVERTICULITIS) Disorders: No HTN: No Hypercholesterolemia: No Liver Disease: No Seizures: No Thyroid Disease: No - Surgical History Abdominal Surgery: Yes (TUMMY TUCK) Appendectomy: No Cardiac Surgery: No Cholecystectomy: No Lung Surgery: No Neurologic Surgery: Yes (LAMINECTOMY) Orthopedic Surgery: No - Immunization History Immunization Up to Date: Yes - Suicide/Smoking/Psychosocial Hx Smoking History: Never smoked Have you smoked in the past 12 months: No If you are a former smoker, when did you quit?: 20YRS AGO Information on smoking cessation initiated: Yes Hx Alcohol Use: No Drug/Substance Use Hx: No Substance Use Type: Alcohol Hx Substance Use Treatment: No <Demetrio Ryan - Last Filed: 05/20/18 13:07> - Past Medical History Allergies/Adverse Reactions: Allergies Allergy/AdvReac Type Severity Reaction Status Date / Time No Known Drug Allergies Allergy Verified 05/19/18 12:26 Home Medications: Ambulatory Orders levoFLOXacin [Levaquin -] 500 mg PO DAILY #10 tablet 01/25/18 metroNIDAZOLE [Flagyl -] 250 mg PO TID #21 tablet 01/26/18 levoFLOXacin [Levaquin] 750 mg PO DAILY #9 tab 05/19/18 metroNIDAZOLE [Flagyl -] 500 mg PO TID #29 tablet 05/19/18 Review of Systems - Review of Systems Able to Perform ROS?: Yes Comments:: 05/19/18 13:51 A complete review of 10 out of 10 review of systems is taken and is negative apart from what is previously mentioned below and in the HPI. <Shakira Blue - Last Filed: 05/19/18 13:51> *Physical Exam - Vital Signs Last Vital Signs Temp Pulse Resp BP Pulse Ox 98.7 F 81 19 125/93 97 05/19/18 12:24 05/19/18 12:24 05/19/18 12:24 05/19/18 12:24 05/19/18 12:24 - Physical Exam Comments: 05/19/18 13:52 Vitals: Triage Vital signs reviewed General Appearance: no acute distress, well nourished well developed, Head: Atraumatic, normocephalic Eyes: Pupils equal reactive round, extraocular movement intact Ears: TM's normal bilaterally; Nose: Nares patent bilaterally;no nasal congestion Throat: Posterior oropharynx without erythema, mucous membranes moist, Neck: Supple;No Nuchal rigidity Chest Wall: Nontender Cardiac: Regular rate and rhythm, no murmurs, no rubs, no gallops, Lungs: Clear to auscultation bilateral, good air movement bilaterally, Abdomen: (+)LLQ tenderness to palpation. Soft, nondistended, normal bowel sounds Rectal: Exam deferred Extremities: Full range of motion to all extremities, no cyanosis, clubbing, or edema Skin: Warm and dry, no rashes or lesions, no petechiae Neuro: AOX3; Cranial Nerves 2-12 grossly intact, Strength intact to all extremities, Sensation intact to all extremities Psych: normal mood, normal affect <Shakira Blue - Last Filed: 05/19/18 13:51> - Vital Signs Last Vital Signs Temp Pulse Resp BP Pulse Ox 98.7 F 81 19 125/93 97 05/19/18 12:24 05/19/18 12:24 05/19/18 12:24 05/19/18 12:24 05/19/18 12:24 <Demetrio Ryan - Last Filed: 05/20/18 13:07> ED Treatment Course - LABORATORY CBC & Chemistry Diagram: 05/19/18 14:05 05/19/18 16:15 <Demetrio Ryan - Last Filed: 05/20/18 13:07> Medical Decision Making - Medical Decision Making 05/20/18 13:06 43 years old with history of recurrent diverticulitis presents with left lower quadrant pain. Labs pain meds IV fluids ordered. Dr. Mcguire to follow-up CAT scan results and dispel. <Demetrio Ryan - Last Filed: 05/20/18 13:07> *DC/Admit/Observation/Transfer - Attestations Scribe Attestion: 05/19/18 13:53 Documentation prepared by Shakira Blue, acting as medical voucher clerk for Demetrio Ryan MD. <Shakira Blue - Last Filed: 05/19/18 13:51> - Discharge Dispostion Decision to Admit order: No <Demetrio Ryan - Last Filed: 05/20/18 13:07> Diagnosis at time of Disposition: Diverticulitis large intestine w/o perforation or abscess w/o bleeding - Discharge Dispostion Disposition: HOME Condition at time of disposition: Stable - Prescriptions Prescriptions: levoFLOXacin [Levaquin] 750 mg PO DAILY #9 tab metroNIDAZOLE [Flagyl -] 500 mg PO TID #29 tablet - Referrals Referrals: Francois Mckeon MD [Staff Physician] - Demetrio Kramer MD [Primary Care Provider] - - Patient Instructions Printed Discharge Instructions: DI for Diverticulitis Additional Instructions: Return to the emergency department immediately with ANY new, persistent or worsening symptoms including worsening abdominal pain, fevers, inability to tolerate oral intake, chest pain, shortness of breath or any other concerns. Stay well hydrated. You MUST call and follow up with a surgeon for further evaluation for possible elective surgery. Your emergency department visit is not complete without a followup with your doctor for reevaluation. Please make sure your doctor reviews the results of your emergency evaluation. Print Language: COLOMBIAN
[2018-05-19 14:16] LABS: BASO % 0.9 % (0-2.0); HEMATOCRIT 43.1 % (32.4-45.2); HEMOGLOBIN 14.4 GM/dL (10.7-15.3); LYMPH % 24.5 % (8-40); MCH 29.7 pg (25.7-33.7); MCHC 33.4 g/dl (32.0-36.0); MEAN PLT VOLUME 9.8 fl (7.5-11.1); MONO % 3.5 % (3.8-10.2); NEUT % 70.1 % (42.8-82.8); PLATELET COUNT 278 K/MM3 (134-434); RBC 4.85 M/mm3 (3.60-5.2); RDW 13.9 % (11.6-15.6); WHITE BLOOD COUNT 10.4 K/mm3 (4.0-10.0)
[2018-05-19 14:17] LABS: URINE APPEARANCE CLEAR; URINE BILIRUBIN NEGATIVE (<2.0 mg/dL); URINE COLOR LTYELLOW; URINE GLUCOSE (UA) NEGATIVE (NEGATIVE); URINE KETONE NEGATIVE (NEGATIVE); URINE LEUK ESTERASE NEGATIVE (NEGATIVE); URINE NITRITE NEGATIVE (NEGATIVE); URINE PROTEIN NEGATIVE (NEGATIVE); URINE UROBILINOGEN NEGATIVE mg/dL (0.2-1.0)
[2018-05-19] MEDS ORDERED: ACETAMINOPHEN INJECTION 100 ML IVPB ONE (14:18)
[2018-05-19] MEDS ORDERED: ONDANSETRON 4 MG/2 ML VIAL ONE (14:18)
[2018-05-19 14:22] LABS: EPI CELLS RARE /HPF (FEW); URINE BACTERIA RARE /hpf (NONE SEEN); URINE MUCUS RARE
[2018-05-19 17:30] LABS: ALBUMIN 3.7 g/dl (3.4-5.0); ALK PHOS 68 U/L (45-117); ANION GAP 9 MMOL/L (8-16); BILIRUBIN,TOTAL 0.5 mg/dL (0.2-1); BLOOD UREA NITROGEN 11 mg/dL (7-18); CALCIUM 8.3 mg/dL (8.5-10.1); CHLORIDE 105 mmol/L (98-107); CO2 25 mmol/L (21-32); CREATININE 0.5 mg/dL (0.55-1.3); GLUCOSE,RANDOM 76 mg/dL (74-106); LIPASE 160 U/L (73-393); POTASSIUM 3.8 mmol/L (3.5-5.1); SGOT/AST 12 U/L (15-37); SGPT/ALT 18 U/L (13-61); SODIUM 139 mmol/L (136-145); TOT PROT 7.1 g/dl (6.4-8.2)
--- NOTE | 2018-05-19 20:32 | PDOC ---
*Physical Exam - Vital Signs Last Vital Signs Temp Pulse Resp BP Pulse Ox 98.7 F 81 19 125/93 97 05/19/18 12:24 05/19/18 12:24 05/19/18 12:24 05/19/18 12:24 05/19/18 12:24 ED Treatment Course - LABORATORY CBC & Chemistry Diagram: 05/19/18 14:05 05/19/18 16:15 - ADDITIONAL ORDERS Additional order review: Laboratory Results 05/19/18 05/19/18 05/19/18 16:15 14:05 14:05 Sodium 139 Cancelled Potassium 3.8 Cancelled Chloride 105 Cancelled Carbon Dioxide 25 Cancelled Anion Gap 9 Cancelled BUN 11 Cancelled Creatinine 0.5 L Cancelled Creat Clearance w eGFR > 60 Cancelled Random Glucose 76 Cancelled Calcium 8.3 L Cancelled Total Bilirubin 0.5 Cancelled AST 12 L Cancelled ALT 18 Cancelled Alkaline Phosphatase 68 Cancelled Total Protein 7.1 Cancelled Albumin 3.7 Cancelled Lipase 160 Cancelled Beta HCG, Quant Cancelled Urine Color Ltyellow Urine Appearance Clear Urine pH 6.0 Ur Specific Harrold 1.018 Urine Protein Negative Urine Glucose (UA) Negative Urine Ketones Negative Urine Blood 2+ H Urine Nitrite Negative Urine Bilirubin Negative Urine Urobilinogen Negative Ur Leukocyte Esterase Negative Urine WBC (Auto) <1 Urine RBC (Auto) 8 Ur Epithelial Cells Rare Urine Bacteria Rare Urine Mucus Rare 05/19/18 14:05 RBC 4.85 MCV 89.0 MCHC 33.4 RDW 13.9 MPV 9.8 D Neutrophils % 70.1 Lymphocytes % 24.5 D Monocytes % 3.5 L Eosinophils % 1.0 Basophils % 0.9 - Medications Given in the ED: ED Medications Discontinued Medications Generic Name Dose Route Start Last Admin Trade Name Jacksonq PRN Reason Stop Dose Admin Acetaminophen 1,000 mg 05/19/18 12:41 05/19/18 14:31 Ofirmev Injection - IVPB 05/19/18 12:42 1,000 mg ONCE ONE Administration Ondansetron HCl 4 mg 05/19/18 12:41 05/19/18 14:31 Zofran Injection IVPUSH 05/19/18 12:42 4 mg ONCE ONE Administration Sodium Chloride 1,000 ml 05/19/18 12:41 05/19/18 14:31 Normal Saline - IV 05/19/18 12:42 1,000 ml ONCE ONE Administration Medical Decision Making - Medical Decision Making 05/19/18 20:32 pt signed out to me from Dr. Ryan at approx 7pm The patient's CT is notable for an uncomplicated diverticulitis we'll treat the patient with antibiotics anticipate outpatient management and PMD follow-up. will refer to surgery as this is the 4th episode of diverticulitis pt feeling improved. minimal LLQ tendernes son exam no rebound/guarding discussed return precautions I discussed the physical exam findings, ancillary test results and final diagnoses with the patient. I answered all of the patient's questions. The patient was satisfied with the care received and felt comfortable with the discharge plan and treatment plan. The patient will call their primary care physician within 24 hours to arrange follow-up and will return to the Emergency Department with any new, persistent or worsening symptoms. *DC/Admit/Observation/Transfer Diagnosis at time of Disposition: Diverticulitis large intestine w/o perforation or abscess w/o bleeding - Discharge Dispostion Disposition: HOME Condition at time of disposition: Stable Decision to Admit order: No - Prescriptions Prescriptions: levoFLOXacin [Levaquin] 750 mg PO DAILY #9 tab metroNIDAZOLE [Flagyl -] 500 mg PO TID #29 tablet - Referrals Referrals: Demetrio Kramer MD [Primary Care Provider] - Francois Mkceon MD [Staff Physician] - - Patient Instructions Printed Discharge Instructions: DI for Diverticulitis Additional Instructions: Return to the emergency department immediately with ANY new, persistent or worsening symptoms including worsening abdominal pain, fevers, inability to tolerate oral intake, chest pain, shortness of breath or any other concerns. Stay well hydrated. You MUST call and follow up with a surgeon for further evaluation for possible elective surgery. Your emergency department visit is not complete without a followup with your doctor for reevaluation. Please make sure your doctor reviews the results of your emergency evaluation. Print Language: LITHUANIAN - Post Discharge Activity
[2018-05-19] MEDS ORDERED: metroNIDAZOLE 250 MG TABLET PO ONE (20:38)
[2018-05-19] MEDS ORDERED: metroNIDAZOLE 250 MG TABLET ONE (20:43)
[2018-05-19 21:01] VITALS: BP 132/84; PULSE 66
== END 2018-05-19 20:57 | disposition home or self-care (01) ==
LOC: JER 12:22
PROC: 3E033NZ Introduction of Analgesics, Hypnotics, Sedatives into Peripheral Vein, Percutaneous Approach (ICD-10-PCS; principal; 2018-05-19)
PROC: 3E033GC Introduction of Other Therapeutic Substance into Peripheral Vein, Percutaneous Approach (ICD-10-PCS; 2018-05-19)
DX: K57.32 Diverticulitis of large intestine without perforation or abscess without bleeding (principal); Z87.09 Personal history of other diseases of the respiratory system
CPT/HCPCS: 36415; 74177-TC; 80053; 81003; 81015; 83690; 85025; 99282-25; J0131; J7030

== ENCOUNTER 2018-07-25 09:32 | Inpatient (IN) | payer OTHER ==
[2018-07-25 10:16] VITALS: BMI 25.1
--- NOTE | 2018-07-25 11:01 | HP ---
History & Physical Update - History History: No Change - Physical Physical: No Change - Assessment Assessment: No Change - Plan Plan: No Change (Full H&P in chart from 07/04/18)
[2018-07-25] MEDS ORDERED: fentaNYL CITRATE 250 MCG/5 ML VIAL ONE (11:31)
[2018-07-25] MEDS ORDERED: PROPOFOL 20 ML ONE (11:31)
[2018-07-25] MEDS ORDERED: MIDAZOLAM HCL 2 MG/2 ML SINGLE DOSE VIAL ONE (11:31)
[2018-07-25] MEDS ORDERED: ROCURONIUM BROMIDE 50 MG/5 ML VIAL ONE ×2 (11:31→14:10)
[2018-07-25] MEDS ORDERED: LIDOCAINE HCL/PF 2% SDV 5ML VIAL ONE (11:33)
[2018-07-25] MEDS ORDERED: DEXAMETHASONE SOD PHOSPHATE 4 MG/1 ML VIAL ONE ×2 (11:33→12:40)
[2018-07-25] MEDS ORDERED: ceFAZolin SODIUM 1 GM VIAL IVPB ONE (12:39)
[2018-07-25] MEDS ORDERED: ceFAZolin SODIUM 1 GM VIAL ONE (12:39)
[2018-07-25] MEDS ORDERED: BUPIVACAINE HCL/PF 0.5% (5MG/ML) 10 ML VIAL ONE (12:59)
[2018-07-25] MEDS ORDERED: BUPIVACAINE HCL/PF (5 MG/ML) 30 ML VIAL IJ ONE (16:21)
[2018-07-25] MEDS ORDERED: GLYCOPYRROLATE 0.2 MG/1 ML VIAL ONE (16:28)
[2018-07-25] MEDS ORDERED: NEOSTIGMINE METHYLSULFATE 0.5 MG/ML - 10 ML MDV ONE (16:28)
--- NOTE | 2018-07-25 16:50 | OP ---
Operative Note - Note: Operative Date: 07/25/18 Pre-Operative Diagnosis: recurrent diverticulitis Operation: laparoscopic sigmoid colon resection Post-Operative Diagnosis: Same as Pre-op Surgeon: Aj Ratliff Anesthesia: General Estimated Blood Loss (mls): 100 Drains, Volume Out (mls): 1 Operative Report Dictated: Yes
[2018-07-25] MEDS ORDERED: HYDROmorphone *PCA* 10MG/50ML DISP.SYRIN PCA SCH (17:15)
[2018-07-25] MEDS ORDERED: HYDROmorphone *PCA* 10MG/50ML DISP.SYRIN PCA ONE (17:47)
[2018-07-25] MEDS ORDERED: CEFAZOLIN 2 GM/D5W 2 GM/50 ML ML IVPB SCH (18:00)
[2018-07-25] MEDS: ONDANSETRON 4 MG/2 ML VIAL IVPUSH PRN (18:41)
[2018-07-25] MEDS: LACTATED RINGERS SOLUTION 1,000 ML IV SCH ×2 (19:25→23:44)
[2018-07-25] MEDS: CEFAZOLIN 2 GM/D5W 2 GM/50 ML ML IVPB SCH (19:51)
[2018-07-26] MEDS: CEFAZOLIN 2 GM/D5W 2 GM/50 ML ML IVPB SCH (03:17)
[2018-07-26 07:19] LABS: HEMATOCRIT 37.1 % (32.4-45.2); HEMOGLOBIN 11.9 GM/dL (10.7-15.3); MCH 28.8 pg (25.7-33.7); MCHC 32.1 g/dl (32.0-36.0); MEAN CELL VOLUME 89.7 fl (80-96); MEAN PLT VOLUME 9.1 fl (7.5-11.1); PLATELET COUNT 262 K/MM3 (134-434); RBC 4.14 M/mm3 (3.60-5.2); RDW 13.1 % (11.6-15.6); WHITE BLOOD COUNT 10.2 K/mm3 (4.0-10.0)
--- NOTE | 2018-07-26 07:26 | SURG ---
Surgery Kindergarten Instructional Assistant Note Kindergarten Instructional Assistant: Lucius Rosales PA-C Date of Service: 07/26/18 Diagnosis: Recurrent diverticulitis Procedure: Laproscopic colon resection, enterotomies, lysis of adhesions I was present for the entirety of the operative procedure. For further detail, please refer to operative report.
[2018-07-26 07:56] LABS: ANION GAP 6 MMOL/L (8-16); BLOOD UREA NITROGEN 11 mg/dL (7-18); CALCIUM 8.1 mg/dL (8.5-10.1); CHLORIDE 104 mmol/L (98-107); CO2 26 mmol/L (21-32); CREATININE 0.4 mg/dL (0.55-1.3); GLUCOSE,RANDOM 117 mg/dL (74-106); POTASSIUM 4.4 mmol/L (3.5-5.1); SODIUM 136 mmol/L (136-145)
[2018-07-26] MEDS ORDERED: ACETAMINOPHEN 1000 MG/100 ML VIAL (NON FORMULARY) IVPB PRN (08:06)
[2018-07-26] MEDS ORDERED: HYDROmorphone HCL CARPU-JECT 2 MG/1 ML DISP.SYRIN IVPB PRN (08:06)
[2018-07-26] MEDS: LACTATED RINGERS SOLUTION 1,000 ML IV SCH (08:34)
--- NOTE | 2018-07-26 09:07 | OP ---
DATE OF OPERATION: 07/25/2018 PREOPERATIVE DIAGNOSIS: Recurrent diverticulitis. POSTOPERATIVE DIAGNOSIS: Recurrent diverticulitis. PROCEDURE: Laparoscopic sigmoid resection. SURGEON: Aj Ratliff MD COMPLICATIONS: None. BLOOD LOSS: Bleeding was minimal. CONDITION: Patient tolerated the procedure well. SPECIMEN: Sigmoid colon. This is a 43-year-old female who presents with recurrent episodes of diverticulitis over the last year and a half, on and off antibiotics persistently, for which she was referred for surgical evaluation and treatment. In the operating room, she was placed in supine position. After induction of general anesthesia, was prepped and draped in the usual sterile fashion. She was placed in a lithotomy position. Her abdominal wall was modified with a previous abdominoplasty and a history of a hysterectomy, which would potentially complicate the procedure. As a result of the tense abdominal wall, decision was made to insufflate through a Veress needle in the left subcostal margin to a pressure of about 15 mmHg, and then, the ports were introduced under direct vision, placing one in the right lower quadrant, one in the periumbilical space, and one in the left lower quadrant. There were adhesions to the anterior abdominal wall, which were taken down and an enterotomy was then identified during this lysis of adhesions and this was repaired by doing a zela-bm-wrur anastomosis through the enterotomy because it was greater than 50% of the wall, and thus, this allowed prevention of stenosis. This was done by firing an EndoGIA stapler between the 2 limbs and then closing it with another stapler of the EndoGIA white cartridge. Next, attention was directed towards the pelvis where again lysis of adhesions was performed extensively to release all small bowel attached to the colon. Previous sutures were seen in the small bowel, which were avoided. Patient is status post hysterectomy which required no further, but there was a large simple cyst of the right ovary which was left intact. At this point in time then the mesocolon was mobilized in a dnlsts-uj-bgxoyau direction using hook dissector and then LigaSure to take down mesocolon all the way down to the pelvis, through the anterior peritoneal reflection. Dissection was carried superiorly and then the medialization bluntly to expose the iliac vessels as well as the left ureter which was clearly identified, and then, at this point in time, the inferior mesenteric artery was divided using the EndoGIA stapler, and the colon was then mobilized out of its white line of Toldt laterally with the use of LigaSure. This was taken down to the pelvis, taking care to avoid and clearly identify the ureter all the way as dissection was performed. The splenic flexure was then taken down using LigaSure, mobilizing the colon all the way superiorly to the splenic flexure, and a nnquvo-qj-spfseqs dissection was performed by releasing the transverse colon from the mesenteric attachments until the splenic flexure was clearly visualized and released. The renal colic ligament was also taken down in order to completely prevent any tension in the anastomosis. At this point, then, an extraction incision was performed in the suprapubic position. A wound protector was positioned. The extraction incision was done with a scalpel down to the subcutaneous tissues. The fascia was very scarred in secondary to the previous abdominoplasty. This did not allow a lot of flexibility of the tissues. The rectus sheath was then carefully, and the peritoneal cavity was entered. The wound protector was positioned at this point, and then, the sigmoid colon was delivered through the wound. The mesentery of the sigmoid colon was then further divided under direct vision between Jenny clamps and ligated with 2-0 Vicryl ties. The sigmoid was then divided with Metzenbaum scissors. There was no spillage. At this point then, sizers were used to estimate the size of the EEA anastomosis. A 28 was selected, and the anvil was positioned within the colon. Then, a pursestring with a 2-0 PDS suture was placed in a baseball fashion in order to close the end of the sigmoid colon around the anvil securely. At this point, the anvil was then returned back to the peritoneal cavity. The wound was closed using standard colorectal bundle using a new tray, and the patient was re-prepped and draped at this point. The wound was closed with 0 Vicryl sutures to close the peritoneum. Number 1 Vicryl was used to close the fascia in a running fashion, and at this point, the patient was re-insufflated to a pressure of 15 mmHg and positioned in a steep Trendelenburg position. The pelvis was irrigated and final check for hemostasis performed and then the EEA was then introduced transanally and positioned at the level of the staple line. The apparatus was activated to deliver the pin through the staple line which was then connected to the anvil and closed. At this point, upon checking the mesentery, making sure there was proper rotation of the mesentery, the EEA was then activated and fired to complete the anastomosis. The EEA was then removed, and doughnuts were tested, appeared to be normal. A leak test was performed with air insufflation through the rectum and a water seal which appeared to be intact. At this point, then, a row of sutures was also used to reinforce the anastomosis using 2-0 Vicryl sutures in interrupted fashion. Following this then, a Wicho-Ray drain was placed in the pelvis. The ports were removed under vision. The fascia at the umbilical port and the left lateral port was then closed with 0 Vicryl in an interrupted fashion, 3-0 Monocryl was used to approximate the subcutaneous tissues in the suprapubic incision, 4-0 Monocryl was used to close the skin at all port sites. Dermabond was applied, and the patient was returned to the recovery room, awake, alert, in stable condition. She tolerated the procedure well. Aundrea [id number]
[2018-07-26] MEDS ORDERED: PANTOPRAZOLE 20 MG TABLET (FP) PO SCH (10:00)
--- NOTE | 2018-07-26 10:09 | PN ---
Progress Note (short form) - Note Progress Note: 43yo F s/p Lap sigmoid resection POD 1, pt seen and examined at bedside. Pt appears to be doing well, complaining of mild abd pain. Pt denies n/v, fever, chills. Pt ambulating well. Last Vital Signs Temp Pulse Resp BP Pulse Ox 98.1 F 79 20 117/79 99 07/26/18 06:27 07/26/18 06:27 07/26/18 06:27 07/26/18 06:27 07/25/18 19:50 CBC, BMP 07/26/18 06:15 07/26/18 06:15 PE: Gen: A&O x3 Resp: breathing comfortably Abd: soft, nontender, nondistended, LLQ drain in place with serosanguinous drainage. Output: 200ml Ext: no edema Problem List - Problems (1) S/P colon resection Assessment/Plan: Plan -continue NPO until flatus or BM -pain management -OOB/ambulate -dc k 8 school principal -dc castro -dvt and GI prophylaxis Code(s): Z90.49 - ACQUIRED ABSENCE OF OTHER SPECIFIED PARTS OF DIGESTIVE TRACT
[2018-07-26] MEDS: PANTOPRAZOLE SODIUM 40 MG VIAL IVPUSH SCH (10:20)
[2018-07-26] MEDS: ENOXAPARIN NA (PORCINE) 40 MG/0.4 ML DISP.SYRIN SQ SCH (10:20)
[2018-07-26] MEDS: ACETAMINOPHEN 1000 MG/100 ML VIAL (NON FORMULARY) IVPB SCH ×3 (10:20→21:59)
[2018-07-26] MEDS: ONDANSETRON 4 MG/2 ML VIAL IVPUSH PRN (10:25)
[2018-07-26] MEDS: morphine SULFATE 4 MG/ML VIAL IVPUSH PRN (21:23)
[2018-07-27] MEDS: LACTATED RINGERS SOLUTION 1,000 ML IV SCH (02:28)
[2018-07-27] MEDS: ACETAMINOPHEN 1000 MG/100 ML VIAL (NON FORMULARY) IVPB SCH (03:47)
[2018-07-27 08:02] LABS: BASO % 0.5 % (0-2.0); EOS % 0.6 % (0-4.5); HEMATOCRIT 35.2 % (32.4-45.2); HEMOGLOBIN 11.9 GM/dL (10.7-15.3); LYMPH % 23.7 % (8-40); MCH 30.3 pg (25.7-33.7); MCHC 33.9 g/dl (32.0-36.0); MEAN CELL VOLUME 89.3 fl (80-96); MEAN PLT VOLUME 9.2 fl (7.5-11.1); MONO % 5.1 % (3.8-10.2); NEUT % 70.1 % (42.8-82.8); PLATELET COUNT 243 K/MM3 (134-434); RBC 3.94 M/mm3 (3.60-5.2); RDW 13.3 % (11.6-15.6); WHITE BLOOD COUNT 8.9 K/mm3 (4.0-10.0)
[2018-07-27 08:50] LABS: ANION GAP 6 MMOL/L (8-16); BLOOD UREA NITROGEN 9 mg/dL (7-18); CALCIUM 8.2 mg/dL (8.5-10.1); CHLORIDE 103 mmol/L (98-107); CO2 29 mmol/L (21-32); CREATININE 0.4 mg/dL (0.55-1.3); GLUCOSE,RANDOM 78 mg/dL (74-106); POTASSIUM 3.9 mmol/L (3.5-5.1); SODIUM 137 mmol/L (136-145)
--- NOTE | 2018-07-27 09:29 | PN ---
Progress Note (short form) - Note Progress Note: 43yo F s/p Lap sigmoid resection POD 2, pt seen and examined at bedside. Pt had some retained urine yesterday and had castro placed back in last night. Pt denies any other complaints states abd pain is well controlled. Denies n/v, fever, chills. Denies flatus or BM. Last Vital Signs Temp Pulse Resp BP Pulse Ox 98.4 F 69 20 130/85 99 07/27/18 06:00 07/27/18 06:00 07/27/18 06:00 07/27/18 06:00 07/26/18 21:00 CBC, BMP 07/27/18 06:30 07/27/18 06:30 PE: Gen: A&O x3 Resp: breathing comfortably Abd: soft, nondistended, mild lower abd pain, drain in place with serosanguinous drainage. Output: 20ml Ext: no edema Problem List - Problems (1) S/P colon resection Assessment/Plan: Plan -remove castro and trial of void this am -continue NPO until flatus or BM -pain management -OOB/ambulat -dvt ppx, gi ppx Code(s): Z90.49 - ACQUIRED ABSENCE OF OTHER SPECIFIED PARTS OF DIGESTIVE TRACT
[2018-07-27] MEDS ORDERED: oxyCODONE HCL 5 MG TABLET PO PRN (09:31)
[2018-07-27] MEDS ORDERED: ACETAMINOPHEN 325 MG TABLET (FP) PO PRN (09:32)
--- NOTE | 2018-07-27 09:36 | PN ---
Progress Note (short form) - Note Progress Note: Post op day#2.S/P Laproscopic colectomy under GA uneventful.Patient stable and c /o pain score of 6-7/10.Dilaudid [employer] ARCHITECT was DC yesterday by the surgeon.Put patient on Oxycodone and Tylenolin addition to IV Morphine.No any anesthesia related problem.Patient DC from the anesthesia care.
[2018-07-27] MEDS: ENOXAPARIN NA (PORCINE) 40 MG/0.4 ML DISP.SYRIN SQ SCH (10:32)
[2018-07-27] MEDS: PANTOPRAZOLE SODIUM 40 MG VIAL IVPUSH SCH (10:32)
--- NOTE | 2018-07-27 18:45 | PATH ---
Surgical Pathology Report Patient Name: CUONG MCGEE Med. Rec. #: [id number] /Age/Gender: 1975 (Age: 43) / F Account: [id number] Location: [facility] MED/SURG Taken: 07/25/2018 Received: 07/26/2018 Reported: 07/27/2018 Physicians: Aj Ratliff M.D. Specimen(s) Received SIGMOID COLON WITH ANASTOMOSIS Clinical History Diverticulosis Final Diagnosis SIGMOID COLON, RESECTION: SEGMENT OF COLON WITH DIVERTICULOSIS AND PROMINENT LYMPHOID AGGREGATES. SURGICAL MARGINS ARE VIABLE. Electronically Signed Tabatha Edwards M.D. Gross Description Received in formalin labeled "sigmoid colon with anastomosis," is a 15 cm in length portion of colon with one stapled mucosal margin and one open mucosal margin. The serosa is browne-mejias and smooth with abundant attached pericolonic adipose tissue. The mucosa is browne with normal folds. No mucosal masses are identified. Sectioning reveals multiple uncomplicated diverticula. No areas of exudate or rupture are identified. Separately received within the same container are two browne, annular, unremarkable portions of bowel with yamila and suture material, consistent with donuts. Academic Director sections are submitted in 11 cassettes as follows: 1-stapled mucosal margin; 2-open mucosal margin; [id number] diverticula; 11-sections from donuts. /07/26/201807/26/2018
--- NOTE | 2018-07-27 20:42 | PN ---
Progress Note (short form) - Note Progress Note: Feeling well denies bowel activity denies pain VSS Exam benign incisions clean and dry ARCHANA ss S/P sigmoid resection doing welll awaitng return of bowel activity
[2018-07-27] MEDS: morphine SULFATE 4 MG/ML VIAL IVPUSH PRN (20:49)
[2018-07-28] MEDS: morphine SULFATE 4 MG/ML VIAL IVPUSH PRN ×2 (03:07→21:55)
[2018-07-28] MEDS ORDERED: PT OWN MED DRAWER 7, Y5N ONE ×2 (06:52→21:38)
--- NOTE | 2018-07-28 08:45 | PN ---
Progress Note (short form) - Note Progress Note: 43yo F s/p Lap sigmoid resection POD 3, pt seen and examined at bedside. Pt passed trial of void, states urinating well. Pt denies any other complaints states abd pain is well controlled. Denies n/v, fever, chills. Denies flatus or BM. Last Vital Signs Temp Pulse Resp BP Pulse Ox 97.8 F 74 20 108/66 99 07/28/18 06:30 07/28/18 06:30 07/28/18 06:30 07/28/18 06:30 07/27/18 21:00 CBC, BMP 07/27/18 06:30 07/27/18 06:30 PE: Gen: A&O x3 Resp: breathing comfortably Abd: soft, nondistended, mild lower abd pain, drain in place with serosanguinous drainage. Output: 20ml Ext: no edema Problem List - Problems (1) S/P colon resection Assessment/Plan: Plan -continue NPO until flatus or BM -pain management -OOB/ambulat -dvt ppx, gi ppx Problem List - Problems (1) S/P colon resection Code(s): Z90.49 - ACQUIRED ABSENCE OF OTHER SPECIFIED PARTS OF DIGESTIVE TRACT
[2018-07-28 09:23] LABS: HEMATOCRIT 38.9 % (32.4-45.2); HEMOGLOBIN 13.4 GM/dL (10.7-15.3); MCH 30.1 pg (25.7-33.7); MCHC 34.5 g/dl (32.0-36.0); MEAN CELL VOLUME 87.4 fl (80-96); MEAN PLT VOLUME 9.1 fl (7.5-11.1); PLATELET COUNT 318 K/MM3 (134-434); RBC 4.44 M/mm3 (3.60-5.2); RDW 12.9 % (11.6-15.6); WHITE BLOOD COUNT 11.5 K/mm3 (4.0-10.0)
[2018-07-28 10:00] LABS: ANION GAP 12 MMOL/L (8-16); BLOOD UREA NITROGEN 13 mg/dL (7-18); CALCIUM 9.2 mg/dL (8.5-10.1); CHLORIDE 107 mmol/L (98-107); CO2 21 mmol/L (21-32); CREATININE 0.5 mg/dL (0.55-1.3); GLUCOSE,RANDOM 82 mg/dL (74-106); MAGNESIUM 2.1 mg/dL (1.8-2.4); PHOSPHOROUS 3.5 mg/dL (2.5-4.9); POTASSIUM 3.9 mmol/L (3.5-5.1); SODIUM 140 mmol/L (136-145)
[2018-07-28] MEDS: PANTOPRAZOLE SODIUM 40 MG VIAL IVPUSH SCH (10:04)
[2018-07-28] MEDS: ENOXAPARIN NA (PORCINE) 40 MG/0.4 ML DISP.SYRIN SQ SCH (10:04)
[2018-07-28] MEDS: LACTATED RINGERS SOLUTION 1,000 ML IV SCH ×2 (10:10→17:43)
[2018-07-29 07:57] LABS: ANION GAP 12 MMOL/L (8-16); BLOOD UREA NITROGEN 12 mg/dL (7-18); CALCIUM 7.9 mg/dL (8.5-10.1); CHLORIDE 105 mmol/L (98-107); CO2 22 mmol/L (21-32); CREATININE 0.4 mg/dL (0.55-1.3); GLUCOSE,RANDOM 61 mg/dL (74-106); POTASSIUM 3.6 mmol/L (3.5-5.1); SODIUM 138 mmol/L (136-145)
--- NOTE | 2018-07-29 09:51 | PN ---
Progress Note (short form) - Note Progress Note: POD 4, s/p Lap sigmoid resection Pt seen and examined. States she is doing well this morning. Reports passing flatus overnight. Feels her stomach is less swollen. Has been oob to the restroom. Tolerated tea yesterday. Denies abdominal pain, fever/chills, n/v/d, calf pain. Vital Signs Temp 98 F 07/29/18 06:00 Pulse 84 07/29/18 06:00 Resp 18 07/29/18 06:00 BP 112/81 07/29/18 06:00 Pulse Ox 99 07/28/18 21:00 Intake & Output 07/28/18 07/28/18 07/29/18 11:59 23:59 11:59 Intake Total 1400 3200 Output Total 370 325 650 Balance 1030 2875 -650 Intake: IV 1400 3000 Lactated Ringers Solution 1400 3000 1,000 ml @ 125 mls/hr IV ASDIR LIZETTE Rx#: [id number] Oral 0 200 Output: Drainage 20 25 50 Left Abdomen 20 25 50 Urine 350 300 600 Void 350 300 600 Other: Voiding Method Toilet Toilet # Unmeasured Voids Void 2 Bowel Movement No CBC, BMP 07/28/18 09:00 07/29/18 06:30 Gen: A&O x3 Resp: breathing comfortably, cta b/l CV; rrr, s1s2 Abd: Dressings c/d/i. Dressings changed, all incisions c/d/i, no erythema or drainage noted. Abdo soft, nondistended, mild lower abd pain, hypoactive bowel sounds. Drain in place with serosanguinous drainage. Output: 50ml for 24 hours Ext: no edema, no ttp A/P: 43 y/o F w/ PMHx diverticulitis, now POD 4, s/p laparoscopic sigmoid resection for recurrent diverticulitis. Pt doing well this AM, passed flatus. Afebrile, wbc trending up on yesterdays labs 11.5 from 8k the day prior) -Advance to clears, monitor for n/v -Monitor vitals -OOB as tolerated -Measure and record drain output -Pain regimen: Acetaminophen 650mg q6hrs prn, Oxy 5mg q6hrs prn, Morphine 4mg q4hrs prn -DVT prophylaxis with Lovenox 40mg qd, b/l scds -Protonix IV 40mg daily -Am labs cbc/bmp, trend leukocytosis -Incentive spirometry above d/w attending Dr Ratliff
[2018-07-29] MEDS: ENOXAPARIN NA (PORCINE) 40 MG/0.4 ML DISP.SYRIN SQ SCH (10:39)
[2018-07-29] MEDS: PANTOPRAZOLE SODIUM 40 MG VIAL IVPUSH SCH (10:40)
[2018-07-29] MEDS: LACTATED RINGERS SOLUTION 1,000 ML IV SCH ×2 (10:44→18:34)
[2018-07-29] MEDS: morphine SULFATE 4 MG/ML VIAL IVPUSH PRN (21:37)
[2018-07-30] MEDS: LACTATED RINGERS SOLUTION 1,000 ML IV SCH ×2 (02:46→09:15)
[2018-07-30 06:52] LABS: EOS % 3.6 % (0-4.5); HEMATOCRIT 32.9 % (32.4-45.2); HEMOGLOBIN 11.5 GM/dL (10.7-15.3); LYMPH % 35.1 % (8-40); MCH 30.7 pg (25.7-33.7); MCHC 34.8 g/dl (32.0-36.0); MEAN CELL VOLUME 88.1 fl (80-96); MEAN PLT VOLUME 8.7 fl (7.5-11.1); MONO % 4.6 % (3.8-10.2); NEUT % 55.7 % (42.8-82.8); PLATELET COUNT 244 K/MM3 (134-434); RBC 3.74 M/mm3 (3.60-5.2); RDW 12.8 % (11.6-15.6); WHITE BLOOD COUNT 6.6 K/mm3 (4.0-10.0)
[2018-07-30 07:42] LABS: ANION GAP 8 MMOL/L (8-16); BLOOD UREA NITROGEN 8 mg/dL (7-18); CALCIUM 7.7 mg/dL (8.5-10.1); CHLORIDE 105 mmol/L (98-107); CO2 27 mmol/L (21-32); CREATININE 0.4 mg/dL (0.55-1.3); GLUCOSE,RANDOM 105 mg/dL (74-106); POTASSIUM 3.4 mmol/L (3.5-5.1); SODIUM 140 mmol/L (136-145)
[2018-07-30] MEDS: ENOXAPARIN NA (PORCINE) 40 MG/0.4 ML DISP.SYRIN SQ SCH (09:15)
[2018-07-30] MEDS: PANTOPRAZOLE SODIUM 40 MG VIAL IVPUSH SCH (09:15)
[2018-07-30] MEDS ORDERED: POTASSIUM CHLORIDE TABS 20 MEQ TABLET.ER (FP) PO ONE (11:12)
--- NOTE | 2018-07-30 11:12 | PN ---
Progress Note (short form) - Note Progress Note: s/p sigmoid resection doing well tolerating diet regular bms Afebrile Exam benign ARCHANA removed WBC 6 K 3.4 S/p sigmoid colon resection D/C home Follow up next week
[2018-07-30 13:19] VITALS: BP 118/65; PULSE 68; TEMP 98.4
== END 2018-07-30 14:00 | disposition home or self-care (01) | DRG 330 ==
LOC: JSAMEDAYSX 09:32 → J8W 18:27
PROVIDERS: ADMIT Surgery; ATTEND Surgery
PROC: 0DNE4ZZ Release Large Intestine, Percutaneous Endoscopic Approach (ICD-10-PCS; 2018-07-25)
PROC: 0DNW4ZZ Release Peritoneum, Percutaneous Endoscopic Approach (ICD-10-PCS; 2018-07-25)
PROC: 0DBN4ZZ Excision of Sigmoid Colon, Percutaneous Endoscopic Approach (ICD-10-PCS; principal; 2018-07-25 13:00)
DX: K57.32 Diverticulitis of large intestine without perforation or abscess without bleeding (principal); K91.72 Accidental puncture and laceration of a digestive system organ or structure during other procedure; K66.0 Peritoneal adhesions (postprocedural) (postinfection); Y83.9 Surgical procedure, unspecified as the cause of abnormal reaction of the patient, or of later complication, without mention of misadventure at the time of the procedure
CPT/HCPCS: 36415; 80048; 83735; 84100; 85025; 85027; 86850; 86900; 86901; 87086; 88307-TC; 94010; 94760; J0131

== ENCOUNTER 2019-05-19 11:55 | Emergency (ER) | payer OTHER ==
[2019-05-19 12:11] VITALS: PULSE 73; BMI 25.8
[2019-05-19] MEDS ORDERED: PANTOPRAZOLE SODIUM 40 MG in SODIUM CHLORIDE 100 ML IVPB ONE (12:55)
[2019-05-19] MEDS ORDERED: ONDANSETRON 4 MG/2 ML VIAL IVPUSH ONE (12:55)
[2019-05-19] MEDS ORDERED: KETOROLAC TROMETHAMINE 30 MG/1 ML VIAL IVPUSH ONE (12:55)
[2019-05-19] MEDS ORDERED: KETOROLAC TROMETHAMINE 30 MG/1 ML VIAL ONE (13:05)
[2019-05-19] MEDS ORDERED: PANTOPRAZOLE SODIUM 40 MG/100 ML BAG IVPB ONE (13:05)
[2019-05-19] MEDS ORDERED: ONDANSETRON 4 MG/2 ML VIAL ONE (13:06)
[2019-05-19] MEDS ORDERED: SODIUM CHLORIDE 500 ML IV STA (13:08)
--- NOTE | 2019-05-19 13:34 | PDOC ---
History of Present Illness - General History Source: Patient Exam Limitations: No Limitations - History of Present Illness Travel History: No Initial Comments: 05/19/19 13:25 44 y/o female with a history of colectomy performed by Dr. Ratliff earlier this year presents to ED with complaints of epigastric pain which she describes as sharp gnawing sensation associated with nausea causing vomiting x3. Patient states took nothing for the above initially thought symptoms were improved but states decided come to the ER for further evaluation. Patient denies fever, chills, change in bowel pattern urinary complaints, rash or recent change in diet. Timing/Duration: reports: constant Quality: reports: mild, cramping Abdominal Pain Onset Location: reports: epigastric Pain Radiation: reports: no radiation Activities at Onset: reports: none Aggravating Factors: improves with: None Alleviating Factors: improves with: None <Ange Hood - Last Filed: 05/19/19 14:51> <Brooke Plasencia - Last Filed: 05/19/19 15:05> - General Chief Complaint: Pain Stated Complaint: STOMACH PAIN Time Seen by Provider: 05/19/19 12:44 Past History - Travel Traveled outside of the country in the last 30 days: No Close contact w/someone who was outside of country & ill: No - Past Medical History Anemia: No Asthma: Yes (as a child) Cancer: No Cardiac Disorders: No CVA: No COPD: No CHF: No DVT: No Dementia: No Diabetes: No GI Disorders: Yes (DIVERTICULITIS) Disorders: No HTN: No Hypercholesterolemia: No Liver Disease: No Seizures: No Thyroid Disease: No - Surgical History Abdominal Surgery: Yes (tummy tuck) Appendectomy: No Cardiac Surgery: No Cholecystectomy: No Lung Surgery: No Neurologic Surgery: Yes (LAMINECTOMY) Orthopedic Surgery: No - Immunization History Immunization Up to Date: Yes - Psycho Social/Smoking Cessation Hx Smoking History: Never smoked Have you smoked in the past 12 months: No If you are a former smoker, when did you quit?: 20YRS AGO Hx Alcohol Use: Yes (SOCIAL) Drug/Substance Use Hx: No Substance Use Type: None Hx Substance Use Treatment: No Patient Lives Alone: No Lives with/in: spouse/SO <Ange Hood - Last Filed: 05/19/19 14:51> <Brooke Plasencia - Last Filed: 05/19/19 15:05> - Past Medical History Allergies/Adverse Reactions: Allergies Allergy/AdvReac Type Severity Reaction Status Date / Time No Known Drug Allergies Allergy Verified 05/19/19 12:11 Abd/GI Specific PMHX - Complaint Specific PMHX Diverticulitis: Yes <Ange Hood - Last Filed: 05/19/19 14:51> Review of Systems - Review of Systems Able to Perform ROS?: Yes Constitutional: No: Symptoms Reported HEENTM: No: Symptoms Reported Respiratory: No: Symptoms reported Cardiac (ROS): No: Symptoms Reported ABD/GI: Yes: Nausea, Vomiting, Indigestion, Abdominal cramping : No: Symptoms Reported Musculoskeletal: No: Symptoms Reported Integumentary: No: Symptoms Reported Neurological: No: Symptoms reported Endocrine: No: Symptoms Reported Hematologic/Lymphatic: No: Symptoms Reported <Ange Hood - Last Filed: 05/19/19 14:51> *Physical Exam - Vital Signs Last Vital Signs Temp Pulse Resp BP Pulse Ox 98.6 F 73 18 110/81 100 05/19/19 12:08 05/19/19 12:08 05/19/19 12:08 05/19/19 12:08 05/19/19 12:08 - Physical Exam General Appearance: Yes: Nourished, Appropriately Dressed. No: Apparent Distress HEENT: negative: Pale Conjunctivae Neck: positive: Normal Thyroid Respiratory/Chest: positive: Lungs Clear, Normal Breath Sounds. negative: Respiratory Distress, Accessory Muscle Use Cardiovascular: positive: Regular Rhythm, Regular Rate. negative: Murmur Gastrointestinal/Abdominal: positive: Normal Bowel Sounds, Soft, Tenderness ( epigastric). negative: Distended Extremity: positive: Normal Capillary Refill Integumentary: positive: Normal Color, Warm, Moist Neurologic: positive: Motor Strength 5/5 (ambulatory) <Ange Hood - Last Filed: 05/19/19 14:51> - Vital Signs Last Vital Signs Temp Pulse Resp BP Pulse Ox 98.6 F 73 18 110/81 100 05/19/19 12:08 05/19/19 12:08 05/19/19 12:08 05/19/19 12:08 05/19/19 12:08 <Brooke Plasencia - Last Filed: 05/19/19 15:05> ED Treatment Course - LABORATORY CBC & Chemistry Diagram: 05/19/19 13:30 05/19/19 13:30 - Medications Given in the ED: ED Medications Discontinued Medications Generic Name Dose Route Start Last Admin Trade Name Freq PRN Reason Stop Dose Admin Pantoprazole Sodium 40 mg/ 100 mls @ 200 mls/hr 05/19/19 12:55 05/19/19 13:03 Sodium Chloride IVPB 05/19/19 13:24 200 mls/hr ONCE ONE Administration Ketorolac Tromethamine 30 mg 05/19/19 12:55 05/19/19 13:02 Toradol Injection - IVPUSH 05/19/19 12:56 30 mg ONCE ONE Administration Ondansetron HCl 4 mg 05/19/19 12:55 05/19/19 13:02 Zofran Injection IVPUSH 05/19/19 12:56 4 mg ONCE ONE Administration <Ange Hood - Last Filed: 05/19/19 14:51> - LABORATORY CBC & Chemistry Diagram: 05/19/19 13:30 05/19/19 13:30 - ADDITIONAL ORDERS Additional order review: Laboratory Results 05/19/19 05/19/19 13:30 13:30 Sodium 138 Potassium 4.7 Chloride 107 Carbon Dioxide 26 Anion Gap 5 L BUN 11.8 Creatinine 0.6 Est GFR (CKD-EPI)AfAm 127.58 Est GFR (CKD-EPI)NonAf 110.08 Random Glucose 74 Calcium 8.9 Magnesium 2.3 Total Bilirubin 0.7 AST 22 ALT 21 Alkaline Phosphatase 70 Total Protein 7.3 Albumin 3.9 Lipase 128 05/19/19 13:30 RBC 4.46 MCV 89.4 MCHC 33.0 RDW 13.2 MPV 8.8 Neutrophils % 56.4 Lymphocytes % 36.4 Monocytes % 3.4 L Eosinophils % 2.6 Basophils % 1.2 - Medications Given in the ED: ED Medications Discontinued Medications Generic Name Dose Route Start Last Admin Trade Name Freq PRN Reason Stop Dose Admin Pantoprazole Sodium 40 mg/ 100 mls @ 200 mls/hr 05/19/19 12:55 05/19/19 13:03 Sodium Chloride IVPB 05/19/19 13:24 200 mls/hr ONCE ONE Administration Sodium Chloride 500 mls @ 500 mls/hr 05/19/19 13:08 05/19/19 13:40 Normal Saline - IV 05/19/19 14:07 500 mls/hr ASDIR STA Administration Ketorolac Tromethamine 30 mg 05/19/19 12:55 05/19/19 13:02 Toradol Injection - IVPUSH 05/19/19 12:56 30 mg ONCE ONE Administration Ondansetron HCl 4 mg 05/19/19 12:55 05/19/19 13:02 Zofran Injection IVPUSH 05/19/19 12:56 4 mg ONCE ONE Administration <Brooke Plasencia - Last Filed: 05/19/19 15:05> Medical Decision Making - Medical Decision Making 05/19/19 13:30 Chief complaint: Epigastric pain constantly for the past 4 days associated nausea and vomiting x3. Other complaints at this time. Patient is a history of colectomy and denies history of GI disorders such as GERD or gastritis. Exam: Patient with epigastric tenderness with no right upper quadrant or CVA tenderness. Vital signs stable. Plan: CBC, comp, lipase, Protonix, Zofran and Toradol ordered. Will consider imaging if warranted. 05/19/19 14:51 Laboratory Tests 05/19/19 05/19/19 05/19/19 13:30 13:30 13:30 WBC 6.5 Hgb 13.1 Hct 39.9 D Absolute Neuts (auto) 3.7 Sodium 138 Potassium 4.7 Chloride 107 Carbon Dioxide 26 Anion Gap 5 L Random Glucose 74 Calcium 8.9 Magnesium 2.3 Total Bilirubin 0.7 AST 22 ALT 21 Total Protein 7.3 Albumin 3.9 Lipase 128 Pt states resolution of symptoms. Pt requesting to be discharged. pt recommended to call Dr davila of today's visit <Ange Hood - Last Filed: 05/19/19 14:51> - Medical Decision Making 05/19/19 15:04 The patient was seen and evaluated in conjunction with midlevel provider under my direct supervision, ancillary studies were reviewed. I agree with the plan as outlined with LIZZIE Hood. HPI, workup/dispo as outlined. VS reviewed, wnl. anticipate discharge, pcp followup, return precautions <Brooke Plasencia - Last Filed: 05/19/19 15:05> Discharge - Discharge Information Problems reviewed: Yes <Celine Hooda - Last Filed: 05/19/19 14:51> <ErinnBrookejason Reina - Last Filed: 05/19/19 15:05> - Discharge Information Clinical Impression/Diagnosis: Epigastric abdominal pain Condition: Improved Disposition: HOME - Additional Discharge Information Prescriptions: Ondansetron HCl [Zofran] 4 mg PO TID PRN #12 tablet PRN Reason: Nausea And/Or Vomiting Pantoprazole Sodium [Protonix] 40 mg PO DAILY #30 tablet.dr - Follow up/Referral Referrals: Demetrio Kramer MD [Primary Care Provider] - - Patient Discharge Instructions Patient Printed Discharge Instructions: DI for Epigastric Pain Additional Instructions: Please drink plenty of water. Avoid spicy and fried foods. Take medication, Zofran as needed for nausea. Start Protonix tomorrow
[2019-05-19 13:42] LABS: BASO % 1.2 % (0-2.0); EOS % 2.6 % (0-4.5); HEMATOCRIT 39.9 % (32.4-45.2); HEMOGLOBIN 13.1 GM/dL (10.7-15.3); LYMPH % 36.4 % (8-40); MCH 29.5 pg (25.7-33.7); MEAN CELL VOLUME 89.4 fl (80-96); MEAN PLT VOLUME 8.8 fl (7.5-11.1); MONO % 3.4 % (3.8-10.2); NEUT % 56.4 % (42.8-82.8); PLATELET COUNT 309 K/MM3 (134-434); RBC 4.46 M/mm3 (3.60-5.2); RDW 13.2 % (11.6-15.6); WHITE BLOOD COUNT 6.5 K/mm3 (4.0-10.0)
[2019-05-19 14:16] LABS: ALBUMIN 3.9 g/dl (3.4-5.0); BILIRUBIN,TOTAL 0.7 mg/dL (0.2-1); BLOOD UREA NITROGEN 11.8 mg/dL (7-18); CALCIUM 8.9 mg/dL (8.5-10.1); CREATININE 0.6 mg/dL (0.55-1.3); POTASSIUM 4.7 mmol/L (3.5-5.1); TOT PROT 7.3 g/dl (6.4-8.2)
[2019-05-19 14:20] LABS: MAGNESIUM 2.3 mg/dL (1.8-2.4)
[2019-05-19 15:15] VITALS: BP 123/73; TEMP 98.2
== END 2019-05-19 15:05 | disposition home or self-care (01) ==
LOC: JER 11:55
PROC: 3E0337Z Introduction of Electrolytic and Water Balance Substance into Peripheral Vein, Percutaneous Approach (ICD-10-PCS; principal; 2019-05-19)
PROC: 3E033GC Introduction of Other Therapeutic Substance into Peripheral Vein, Percutaneous Approach (ICD-10-PCS; 2019-05-19)
PROC: 3E033GC Introduction of Other Therapeutic Substance into Peripheral Vein, Percutaneous Approach (ICD-10-PCS; 2019-05-19)
PROC: 3E0333Z Introduction of Anti-inflammatory into Peripheral Vein, Percutaneous Approach (ICD-10-PCS; 2019-05-19)
DX: R10.13 Epigastric pain (principal); Z90.49 Acquired absence of other specified parts of digestive tract; Z87.19 Personal history of other diseases of the digestive system
CPT/HCPCS: 36415; 80053; 83690; 83735; 85025; 96361; 96365; 96375; 99282-25; J7030

== ENCOUNTER 2019-09-13 04:43 | Day surgery (SDC) | payer OTHER ==
[2019-09-11 16:44] VITALS: BMI 25.9
[2019-09-13] MEDS ORDERED: MIDAZOLAM HCL 2 MG/2 ML SINGLE DOSE VIAL ONE (12:34)
[2019-09-13] MEDS ORDERED: PROPOFOL 20 ML ONE (12:35)
[2019-09-13] MEDS ORDERED: LIDOCAINE HCL/PF 2% SDV 5ML VIAL ONE (12:35)
[2019-09-13] MEDS ORDERED: ONDANSETRON 4 MG/2 ML VIAL IVPUSH PRN (12:44)
[2019-09-13] MEDS ORDERED: oxyCODONE HCL 5 MG TABLET PO PRN (12:44)
[2019-09-13] MEDS ORDERED: LACTATED RINGERS SOLUTION 1,000 ML IV SCH (12:45)
[2019-09-13] MEDS ORDERED: ceFAZolin SODIUM 1 GM VIAL IVPB ONE (12:52)
[2019-09-13] MEDS ORDERED: KETOROLAC TROMETHAMINE 30 MG/1 ML VIAL ONE (12:56)
[2019-09-13] MEDS ORDERED: DEXAMETHASONE SOD PHOSPHATE 4 MG/1 ML VIAL ONE (12:56)
[2019-09-13] MEDS ORDERED: ONABOTULINUMTOXINA 200 UNIT/VIAL VIAL NR ONE (13:00)
[2019-09-13] MEDS ORDERED: ACETAMINOPHEN 325 MG TABLET (FP) PO PRN (13:17)
--- NOTE | 2019-09-13 13:45 | OP ---
Operative Note - Note: Operative Date: 09/13/19 Pre-Operative Diagnosis: refractory overactive bladder Operation: cysto and botox bladder instillation (200 units) Findings: grade 1 trabeculation, normal bladder mucosa Post-Operative Diagnosis: Same as Pre-op Surgeon: Jim Cruz Anesthesia: General Specimens Removed: urine Estimated Blood Loss (mls): 0 Drains & Tubes with Location: none Drains, Volume Out (mls): 0 Blood Volume Replaced (mls): 0 Fluid Volume Replaced (mls): 0 Operative Report Dictated: Yes
--- NOTE | 2019-09-13 14:14 | PREOP ---
DATE OF ADMISSION: 09/13/2019 HISTORY OF PRESENT ILLNESS: Patient is a 44-year-old female presenting for ambulatory surgery for Botox bladder injection. She has history of refractory overactive bladder. There has been no help with anticholinergic and Kegel exercises. The patient denies any allergies. She also denies any urinary incontinence. She has daytime frequency q.40 minutes and nighttime frequency q.1 hour. She has had a total abdominal hysterectomy, as well as an exploratory laparotomy for ruptured diverticulosis. She denies any high blood pressure or diabetes. She denies ethanolism or tobacco. She has also undergone a lumbar laminectomy, as well as a plastic surgical procedure on the abdomen. ASSESSMENT AND PLAN: A workup in the office including a urodynamic evaluation revealed an overactive bladder. Patient is advised to undergo Botox bladder injection. All the possible side effects and benefits were explained to patient and she agrees. ELIZABETH MOHAN M.D. [id number]
[2019-09-13 15:44] VITALS: BP 117/75; PULSE 69; TEMP 97.3
--- NOTE | 2019-09-13 21:47 | OP ---
DATE OF OPERATION: 09/13/2019 PREOPERATIVE DIAGNOSIS: Refractory overactive bladder. POSTOPERATIVE DIAGNOSIS: Refractory overactive bladder. OPERATIVE PROCEDURE: Cystourethroscopy, collection of urine, and intravesical injection of Botox. ANESTHESIA: General. Under the above-stated anesthesia, patient is prepped and draped in the usual sterile manner. She is placed in the dorsal lithotomy position. Cystoscopy revealed a normal urethra. Urine was collected for C&S and cytology. Inspection of the bladder revealed a fine, grade 1 trabeculation. No lesions were noted. No calculi were seen. Ureteral orifices were within normal limits with efflux of clear urine. Next, 200 units of Botox were mixed with 20 mL of normal saline; 1-mm injections were placed 1 cm above the right ureteral orifice and across from the right to the left side, five in total. A second row, a third row, and a fourth row including twenty 1-mL injections. There was no active bleeding. The bladder was emptied. The scope was removed. The patient tolerated the procedure well. She returned to the recovery room in good condition. Aundrea [id number]
--- NOTE | 2019-09-14 16:04 | PATH ---
Cytology Non-Gynecological Report Patient Name: CUONG MCGEE [facility]. Rec. #: [id number] /Age/Gender: 1975 (Age: 44) / F Account: [id number] Location: [facility] SURGICAL Taken: 09/13/2019 Received: 09/14/2019 Reported: 09/14/2019 Physicians: Jim Cruz M.D. Specimen(s) Received URINE VOIDED Clinical History Overactive bladder Final Diagnosis URINE FOR CYTOLOGY: SATISFACTORY FOR EVALUATION. NEGATIVE FOR HIGH GRADE UROTHELIAL CARCINOMA. FEW RED BLOOD CELLS, SCATTERED UROTHELIAL AND SQUAMOUS CELLS PRESENT. Electronically Signed Zen Austin M.D. Gross Description Approximately 45cc of yellow fluid received fresh. One cytospin prepared.
== END 2019-09-13 15:15 | disposition home or self-care (01) ==
LOC: JASU-SURG 04:43
PROVIDERS: ATTEND Urology
PROC: 3E0K8GC Introduction of Other Therapeutic Substance into Genitourinary Tract, Via Natural or Artificial Opening Endoscopic (ICD-10-PCS; principal; 2019-09-13 12:30)
DX: N32.81 Overactive bladder (principal); N31.1 Reflex neuropathic bladder, not elsewhere classified
CPT/HCPCS: 87086; 94760; J0585

== ENCOUNTER 2021-04-04 15:31 | Emergency (ER) | payer OTHER ==
[2021-04-04 15:49] VITALS: BP 127/81; PULSE 83; TEMP 97.8; BMI 26.6
== END 2021-04-04 18:53 | disposition home or self-care (01) ==
LOC: JER 15:31
DX: R22.41 Localized swelling, mass and lump, right lower limb (principal)
CPT/HCPCS: 73610-TC-RT-FY; 73630-TC-RT-FY; 93971-TC; 99284-25

== ENCOUNTER 2022-02-09 18:32 | Emergency (ER) | payer OTHER ==
[2022-02-09 18:49] VITALS: BP 118/79; PULSE 65; RESP 20; TEMP 98; BMI 27.8
[2022-02-09] MEDS ORDERED: diazePAM 5 MG TABLET PO ONE (20:28)
[2022-02-09] MEDS ORDERED: KETOROLAC TROMETHAMINE 30 MG/1 ML VIAL IM ONE (20:28)
[2022-02-09] MEDS ORDERED: KETOROLAC TROMETHAMINE 30 MG/1 ML VIAL ONE (20:35)
[2022-02-09] MEDS ORDERED: diazePAM 5 MG TABLET ONE (20:35)
[2022-02-09] MEDS ORDERED: DEXAMETHASONE SOD PHOSPHATE 10 MG/1 ML VIAL IM ONE (20:38)
[2022-02-09] MEDS ORDERED: LIDOCAINE 5% TOPICAL PATCH TP ONE (20:38)
[2022-02-09] MEDS ORDERED: LIDOCAINE 5% TOPICAL PATCH ONE (20:39)
[2022-02-09] MEDS ORDERED: DEXAMETHASONE SOD PHOSPHATE 10 MG/1 ML VIAL ONE (20:39)
[2022-02-09 21:11] LABS: EPI CELLS 10 /uL (0-25.1); HYALINE CASTS 0 /uL (0-3.1); PH,URINE 5.5 (5.0-8.0); URINE APPEARANCE CLEAR; URINE BACTERIA >9,000 /uL (0-1359); URINE BILIRUBIN NEGATIVE (NEGATIVE); URINE COLOR YELLOW; URINE GLUCOSE (UA) NEGATIVE (NEGATIVE); URINE KETONE 1+ (NEGATIVE); URINE LEUK ESTERASE NEGATIVE (NEGATIVE); URINE NITRITE POSITIVE (NEGATIVE); URINE PROTEIN NEGATIVE (NEGATIVE); URINE RBC 6 /uL (0-23.9); URINE UROBILINOGEN 0.2 mg/dL (0.2-1.0); URINE WBC 12 /uL (0-25.8)
[2022-02-09] MEDS ORDERED: CEPHALEXIN MONOHYDRATE 500 MG CAPSULE (UD) PO ONE (21:20)
[2022-02-09] MEDS ORDERED: CEPHALEXIN MONOHYDRATE 500 MG CAPSULE (UD) ONE (21:26)
[2022-02-09] MEDS ORDERED: LIDOCAINE PATCH REMOVAL MC SCH (22:00)
== END 2022-02-09 21:30 | disposition home or self-care (01) ==
LOC: JERFT 18:32 → JER 18:32 → JERFT 21:30
PROC: 3E023GC Introduction of Other Therapeutic Substance into Muscle, Percutaneous Approach (ICD-10-PCS; principal; 2022-02-09)
DX: N39.0 Urinary tract infection, site not specified (principal); M54.32 Sciatica, left side
CPT/HCPCS: 72100-TC-FY; 81003; 87086; 87186; 99284-25; J1100

== ENCOUNTER 2022-09-09 15:10 | Emergency (ER) | payer OTHER ==
[2022-09-09 15:18] VITALS: BP 117/89; PULSE 83; RESP 16; TEMP 98.2; BMI 27.1
[2022-09-09 17:11] LABS: BASO % 1.2 % (0-2.0); HEMATOCRIT 39.4 % (32.4-45.2); LYMPH % 28.4 % (8-40); MCH 28.9 pg (25.7-33.7); MCHC 32.9 g/dl (32.0-36.0); MEAN CELL VOLUME 87.9 fl (80-96); MEAN PLT VOLUME 8.9 fl (7.5-11.1); MONO % 3.5 % (3.8-10.2); NEUT % 64.9 % (42.8-82.8); PLATELET COUNT 260 10^3/uL (134-434); RBC 4.49 M/mm3 (3.60-5.2); RDW 13.4 % (11.6-15.6); WHITE BLOOD COUNT 8.3 K/mm3 (4.0-10.0)
[2022-09-09 17:41] LABS: CALCIUM 8.8 mg/dL (8.5-10.1)
[2022-09-09 17:42] LABS: ALBUMIN 3.6 g/dl (3.4-5.0); BLOOD UREA NITROGEN 19.2 mg/dL (7-18); MAGNESIUM 2.1 mg/dL (1.8-2.4)
[2022-09-09 17:45] LABS: CREATININE 0.6 mg/dL (0.55-1.3)
[2022-09-09 17:47] LABS: BILIRUBIN,TOTAL 0.4 mg/dL (0.2-1); TOT PROT 6.9 g/dl (6.4-8.2)
== END 2022-09-09 18:24 | disposition home or self-care (01) ==
LOC: JER 15:10
DX: R00.2 Palpitations (principal); G47.00 Insomnia, unspecified
CPT/HCPCS: 36415; 80053; 83735; 84443; 85025; 93005; 93010; 99284-25